=== PATIENT | female | born 2000 | race Caucasian/White ===

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

== ENCOUNTER → 2018-01-07 | Outpatient (CLI) | payer BC | END | disposition home or self-care (01) | LOC: C.LAB1850 10:43 | PROVIDERS: ATTEND Obstetrics & Gynecology | DX: Z34.03 Encounter for supervision of normal first pregnancy, third trimester (principal) ==

== ENCOUNTER 2020-04-27 08:29 | Inpatient (IN) ==
[2020-04-27] MEDS ORDERED: HYDROmorphone INJ 0.5 MG/0.5 ML SYR IV STA ×2 (08:54→09:51)
[2020-04-27] MEDS ORDERED: SODIUM CHLORIDE 0.9% 1000ML 1,000 ML IV ONE (08:54)
[2020-04-27] MEDS ORDERED: ONDANSETRON INJ 2 MG/ML 2 ML VIAL IV STA ×2 (08:54→11:45)
[2020-04-27 09:07] LABS: Basophils # (auto) 0.01 K/uL (0-0.2); Basophils % (auto) 0.1 %; Eosinophils # (auto) 0.07 K/uL (0-0.5); Eosinophils % (auto) 0.5 %; Hematocrit (blood only) 42.4 % (37-47); Hemoglobin 14.3 g/dL (12.0-16.0); Immature Granulocytes # (auto) 0.02 K/uL (0.00-0.02); Immature Granulocytes % (auto) 0.2 %; Lymphocytes # (auto) 1.32 K/uL (1.2-3.4); Lymphocytes % (auto) 10.1 %; Mean Corpuscular Hgb Conc 33.7 g/dL (32-36); Mean Corpuscular Volume 88.9 fL (80-100); Mean Platelet Volume 9.3 fL (7.4-10.4); Monocytes # (auto) 0.76 K/uL (0.11-0.59); Monocytes % (auto) 5.8 %; Neutrophils # (auto) 10.94 K/uL (1.4-6.5); Neutrophils % (auto) 83.3 %; Platelet Count 291 K/uL (130-400); RDW Coefficient of Variation 12.8 % (11.5-14.5); RDW Standard Deviation 41.1 fL (36.4-46.3); Red Blood Count 4.77 M/uL (4.2-5.4); White Blood Count 13.12 K/uL (4.8-10.8)
[2020-04-27 09:15] LABS: Albumin Level 3.9 gm/dl (3.4-5.0); BUN Creatinine Ratio 14.1 (10-20); Calcium 8.9 mg/dl (8.5-10.1); Creatinine Clr Calc Pharmacy 169.2 ml/min; Est GFR (African American) 143.5; Est GFR (Non-African American) 123.9
[2020-04-27 09:18] LABS: Bilirubin,Total 0.7 mg/dl (0.2-1); Total Protein 7.9 gm/dl (6.4-8.2)
[2020-04-27] MEDS ORDERED: PROMETHAZINE 25 MG/51 ML BAG IV STA (09:51)
--- NOTE | 2020-04-27 09:51 | Emergency Department Note ---
History of Present Illness General Chief complaint: Abdominal Pain Stated complaint: RT SIDED ABD PAIN INTO SHOULDERS Time Seen by Provider: 04/27/20 08:44 History of Present Illness Maximum Pain Intensity: 7 19-year-old female who presents to the emergency department with complaint of ri ght upper quadrant pain radiating into her right shoulder. The patient reports nausea without vomiting. The patient is currently scheduled for gallbladder removal 2 days from now with Dr. Ackerman. She did not have any pain or nausea medications at home. She denies any fever or chills, chest pain, shortness of breath or left-sided abdominal pain, and currently rates her discomfort a 7 out of 10. Home Medications Home Medications Medication Instructions Recorded Confirmed Type levonorgestrel 20 mcg/24 hours (5 1 device IU UD 08/12/19 04/27/20 History yrs) 52 mg intrauterine device clindamycin phosphate 1 % lotion 1 appln TOP DAILY #60 ml 02/02/20 04/27/20 Rx spironolactone 100 mg tablet 100 mg PO DAILY #30 tab 04/06/20 04/27/20 Rx escitalopram oxalate [Lexapro] 10 mg PO HS 04/27/20 04/27/20 History tretinoin 1 applic TOP HS 04/27/20 04/27/20 History Allergies Allergy/AdvReac Type Severity Reaction Status Date / Time acetaminophen Allergy Unknown THROAT Verified 04/27/20 09:54 CLOSES Past Med/Surg History Medical History Acne vulgaris KENNETH (generalized anxiety disorder) GERD (gastroesophageal reflux disease) Gestational hypertension no problems currently Hx of appendicitis no surgery Hx of colonic polyps IBS (irritable bowel syndrome) Surgical History H/O removal of cyst face History of section History of colonoscopy 08/2019 History of tonsillectomy Family History Aunt Breast cancer Grandfather (Paternal) Colorectal cancer Father Diabetes Hypertension Aunt Breast cancer Other No family history of adverse response to anesthesia Denies family history of Ovarian cancer Prostate cancer Myocardial infarction Social History Smoking Status: Never smoker Second Hand Exposure: No; Hx Alcohol Use: No Hx Substance Use: No Preferred Language: Slovenian Communication Ability: Effective Back Digger Operator Required: No Beliefs That Will Affect Care: None marital status: Single Current Living Situation: Parent current occupational status: employed current occupation: [employer] Other Information That Helps Us Care for You: No Feels Safe at Home: No Is there a partner from a previous relationship who is making you feel unsafe now?: No Any Concerns about Your Family Situation: No Would You Like to Speak to Someone About Your Situation: No Safety Concerns: Feels Safe At This Time Dental Care, Regularly: Yes Physical Activity Frequency: Daily Seatbelt Use: always Sunscreen Use: No Review of Systems 10 system review was performed and was negative except for pertinent positives and negatives as indicated in history of present illness Physical Exam Vital Signs Vital Signs - 24 hr 04/27/20 08:42 04/27/20 09:40 04/27/20 10:54 Temperature 37.1 C Temperature Source Oral Pulse Rate 98 H Pulse Rate [Finger] 77 84 Pulse Rhythm Regular Pulse Strength Normal Respiratory Rate 22 16 16 Respiratory Effort / Characteristics Non-Labored Spontaneous Respiratory Depth Normal Respiratory Pattern Regular Blood Pressure 181/91 H Blood Pressure [Right Arm] 171/84 H 144/70 H Blood Pressure Mean 121 Blood Pressure Mean [Right Arm] 113 94 Blood Pressure Position Sitting Pulse Oximetry 100 95 97 Oxygen Delivery Method Room Air Room Air Room Air Sepsis Recent Fever Within 48 Hours No Sepsis New/Unexplained Change in Mental Status N/A Sepsis Action Taken by Nursing No Action Required 04/27/20 12:05 04/27/20 13:27 Temperature Temperature Source Pulse Rate Pulse Rate [Finger] 95 H 75 Pulse Rhythm Pulse Strength Respiratory Rate 16 16 Respiratory Effort / Characteristics Respiratory Depth Respiratory Pattern Blood Pressure Blood Pressure [Right Arm] 161/95 H 151/81 H Blood Pressure Mean Blood Pressure Mean [Right Arm] 117 104 Blood Pressure Position Pulse Oximetry 93 96 Oxygen Delivery Method Room Air Sepsis Recent Fever Within 48 Hours Sepsis New/Unexplained Change in Mental Status Sepsis Action Taken by Nursing CONSTITUTIONAL: Healthy and well nourished. Patient appears in moderate discomfort from pain and nausea. HEENT: Normocephalic, atraumatic. No scleral icterus. NECK: Full active range of motion without discomfort. LYMPHATICS: No cervical chain adenopathy. RESPIRATORY: Clear to auscultation bilaterally with no wheezing, crackles, rhonchi or stridor. CARDIOVASCULAR: Regular rate and rhythm with no murmurs, rubs or gallops. GASTROINTESTINAL: Bowel sounds present in all quadrants. Patient has right upper quadrant tenderness to palpation. No rigidity, guarding or rebound. Negative CVA tenderness. Negative McBurney's point tenderness and negative Rovsing sign. MUSCULOSKELETAL: Full range of motion of all joints without discomfort. INTEGUMENTARY: No rash or other significant dermatologic conditions noted. HEMATOLOGIC: No ecchymosis or petechiae. PSYCHIATRIC: Positive affect. NEUROLOGIC: No focal neurologic deficits noted. Course Course Patient history and physical exam were performed. Nurse's notes were reviewed. Vital signs were reviewed, showing an elevated blood pressure of 181/91. The patient appears in moderate discomfort from pain and nausea. I also reviewed electronic medical records, showing that the patient had an ultrasound performed on 04/09/2020 showing a possible gallbladder cyst versus sludge. A HIDA scan was also performed on 04/19/2020, showing an ejection fraction of 49%. The patient reports that she is scheduled for elective cholecystectomy in 2 days, but is unable to tolerate the pain and nausea, and presents to the emergency department for further treatment. IV access was established, and labs were drawn. The patient was hydrated with a liter of normal saline, and administered IV Dilaudid and Zofran. Review of labs shows a mildly elevated white count, otherwise electrolytes, LFTs, alkaline eva sphatase and bilirubin are normal. Prior to ultrasound, the patient was having persistent pain and vomiting. She was administered an additional dose of IV Dilaudid, along with IV Phenergan. The patient still had persistent nausea and vomiting. She was able to tolerate gallbladder ultrasound which did not show any evidence for cholecystitis. The patient was administered an additional dose of IV morphine and Zofran. The case was then discussed with Dr. Mcbride, ED attending physician, as well as the [facility], who came to evaluate the patient. They agreed to admit the patient in anticipation of consulting gastroenterology, and ultimately performing a cholecystectomy. Please see their dictation for further treatment and final disposition. Administered Medications Sodium Chloride (Nss 1000ml) 1,000 mls @ 125 mls/hr IV .Q8H MARIO Stop: 05/27/20 14:13 Last Admin: 04/27/20 14:38 Dose: 125 mls/hr Documented by: [id number] Morphine Sulfate (Morphine Sulfate) 2 mg IV Q3H PRN PRN Reason: MODERATE Pain (Scale 4,5,6) Stop: 05/11/20 14:13 Last Admin: 04/27/20 15:55 Dose: 2 mg Documented by: [id number] Ondansetron HCl (Zofran) 4 mg IV Q4H PRN PRN Reason: Nausea And Vomiting Stop: 05/27/20 14:13 Last Admin: 04/27/20 15:55 Dose: 4 mg Documented by: [id number] Discontinued Medications Hydromorphone HCl (Dilaudid) 0.5 mg IV NOW STA Stop: 04/27/20 08:55 Last Admin: 04/27/20 09:09 Dose: 0.5 mg Documented by: [id number] Hydromorphone HCl (Dilaudid) 0.5 mg IV NOW STA Stop: 04/27/20 09:52 Last Admin: 04/27/20 09:56 Dose: 0.5 mg Documented by: [id number] Sodium Chloride (Nss 1000ml) 1,000 mls @ 999 mls/hr IV .Q1H1M ONE Stop: 04/27/20 09:54 Last Infusion: 04/27/20 10:12 Dose: 0 mls/hr Documented by: [id number] Admin: 04/27/20 09:10 Dose: 999 mls/hr Documented by: [id number] Promethazine HCl (Phenergan) 25 mg in 51 mls @ 204 mls/hr IV NOW STA Stop: 04/27/20 10:05 Last Infusion: 04/27/20 10:13 Dose: 0 mls/hr Documented by: [id number] Admin: 04/27/20 09:56 Dose: 204 mls/hr Documented by: [id number] Piperacillin Sod/Tazobactam (Sod 4.5 gm/ Dextrose) 120 mls @ 200 mls/hr IV NOW ONE; Protocol Stop: 04/27/20 15:20 Last Admin: 04/27/20 15:55 Dose: 200 mls/hr Documented by: [id number] Morphine Sulfate (Morphine Sulfate) 4 mg IV NOW STA Stop: 04/27/20 11:46 Last Admin: 04/27/20 12:02 Dose: 4 mg Documented by: [id number] Morphine Sulfate (Morphine Sulfate) Confirm Administered Dose 2 mg .ROUTE .STK- MED ONE Stop: 04/27/20 13:31 Last Admin: 04/27/20 13:32 Dose: 2 mg Documented by: [id number] Ondansetron HCl (Zofran) 4 mg IV NOW STA Stop: 04/27/20 08:55 Last Admin: 04/27/20 09:09 Dose: 4 mg Documented by: [id number] Ondansetron HCl (Zofran) 4 mg IV NOW STA Stop: 04/27/20 11:46 Last Admin: 04/27/20 12:02 Dose: 4 mg Documented by: [id number] Medical Decision Making Medical Records Attestation: I reviewed the patient's medical records. Home Medications Current Medication List: was personally reviewed by me Laboratory Data Attestation: I reviewed the patient's lab results. Result diagrams: 04/27/20 08:45 04/27/20 08:45 Lab Results 04/27/20 04/27/20 04/27/20 Range/Units 08:45 08:45 08:45 WBC 13.12 H (4.8-10.8) K/uL RBC 4.77 (4.2-5.4) M/uL Hgb 14.3 (12.0-16.0) g/dL Hct 42.4 (37-47) % MCV 88.9 (80-100) fL MCH 30.0 (25-34) pg MCHC 33.7 (32-36) g/dL RDW Std Deviation 41.1 (36.4-46.3) fL RDW Coeff of Nuris 12.8 (11.5-14.5) % Plt Count 291 (130-400) K/uL MPV 9.3 (7.4-10.4) fL Immature Gran % (Auto) 0.2 % Neut % (Auto) 83.3 % Lymph % (Auto) 10.1 % [place] % (Auto) 5.8 % Eos % (Auto) 0.5 % Baso % (Auto) 0.1 % Neut # (Auto) 10.94 H (1.4-6.5) K/uL Lymph # (Auto) 1.32 (1.2-3.4) K/uL [place] # (Auto) 0.76 H (0.11-0.59) K/uL Eos # (Auto) 0.07 (0-0.5) K/uL Baso # (Auto) 0.01 (0-0.2) K/uL Immature Gran # (Auto) 0.02 (0.00-0.02) K/uL Sodium 138 (136-145) mmol/L Potassium 4.0 (3.5-5.1) mmol/L Chloride 109 H (98-107) mmol/L Carbon Dioxide 22 (21-32) mmol/L Anion Gap 8.0 (3-11) BUN 10 (7-18) mg/dl Creatinine 0.70 (0.6-1.2) mg/dl Est Cr Clr Drug Dosing 169.2 ml/min Est GFR ( Amer) 143.5 Est GFR (Non-Af Amer) 123.9 BUN/Creatinine Ratio 14.1 (10-20) Glucose 95 (70-99) mg/dl Calcium 8.9 (8.5-10.1) mg/dl Total Bilirubin 0.7 (0.2-1) mg/dl AST 19 (15-37) U/L ALT 32 (12-78) U/L Alkaline Phosphatase 90 (45-117) U/L Total Protein 7.9 (6.4-8.2) gm/dl Albumin 3.9 (3.4-5.0) gm/dl Globulin 4.0 (2.5-4.0) gm/dl Albumin/Globulin Ratio 1.0 (0.9-2) Lipase 95 (73-393) U/L HCG, Qual Negative (Negative) Imaging Data Attestation: I personally reviewed and interpreted this imaging study as enriqueta armstrong: My Impression: Gallbladder ultrasound does not show any evidence for cholecystitis. A gallbladder polyp is noted. No common bile duct dilatation appreciated. Radiologist report was also reviewed. Radiologist's Impression: US gallbladder CLINICAL HISTORY: Biliary colic. COMPARISON STUDY: CT of the abdomen and pelvis September 24, 2013. Right upper quadrant ultrasound April 09, 2020. FINDINGS: Hepatic echogenicity is increased. Exam is mildly compromised by suboptimal penetration but no hepatic lesions are identified. A suspected 4 mm gallbladder polyp is again noted. There is no gallbladder wall thickening. There is no pericholecystic fluid. No biliary ductal dilatation present. The common bile duct measures 5 mm in caliber. The pancreatic body is normal. Head and tail are partially obscured. IMPRESSION: 1. Suspected 4 mm gallbladder polyp. 2. No gallstones. No gallbladder wall thickening. 3. Fatty liver. Prescription Drug Monitoring [place] Drug Monitoring Program reviewed and no issues identified Blood Pressure Blood Pressure Findings: Elevated blood pressure Blood Pressure Disposition: elevated BP felt to be situational MDM Narrative Patient presents the emergency department with complaint of right upper quadrant abdominal pain, nausea and vomiting. The patient had poor pain and nausea control while in the emergency department. Her ultrasound does not show evidence for acute cholecystitis, and lab work is otherwise unremarkable except for a mild leukocytosis. The patient has been evaluated by general surgery Laboratory studies are not suggestive of pancreatitis or hepatitis. The patient was unable to provide a urine sample to rule out or UTI. Serum , however, was negative. Impression & Plan Biliary colic, Right upper quadrant abdominal pain Discharge Plan Visit Data *Final* Discharge Date/Time: 04/27/20 13:41 Chief Complaint: Abdominal Pain Stated Complaint: RT SIDED ABD PAIN INTO SHOULDERS ED Provider: Ofelia Mcbride ED Midlevel Provider: Spencer Whitfield Discharge Problem: Biliary colic, Right upper quadrant abdominal pain Patient Disposition: Admitted As Inpatient Discharge Instructions Interventions: ED Discharge Assessment Last Done: 04/27/20 13:41
--- NOTE | 2020-04-27 10:52 | Ultrasound Report ---
US gallbladder CLINICAL HISTORY: Biliary colic. COMPARISON STUDY: CT of the abdomen and pelvis September 24, 2013. Right upper quadrant ultrasound Ju 2019. FINDINGS: Hepatic echogenicity is increased. Exam is mildly compromised by suboptimal penetration but no hepatic lesions are identified. A suspected 4 mm gallbladder polyp is again noted. There is no ga llbladder wall thickening. There is no pericholecystic fluid. No biliary ductal dilatation present. T he common bile duct measures 5 mm in caliber. The pancreatic body is normal. Head and tail are partia lly obscured. IMPRESSION: 1. Suspected 4 mm gallbladder polyp. 2. No gallstones. No gallbladder wall thickening. 3. Fatty liver. ACT 112: Negative or not required by law. Electronically signed by: Manan Ray M.D. 04/27/2020 10:51 AM
[2020-04-27] MEDS ORDERED: MoRPHine SULFATE 4 MG/ML 1 ML CARP\\VIAL IV STA (11:45)
[2020-04-27 12:21] LABS: Pregnancy Test, Serum Negative (Negative)
--- NOTE | 2020-04-27 12:25 | History & Physical Report ---
Date of Service April 27, 2020 Assessment & Plan (1) RUQ abdominal pain: This is a 19y F with a PMH of anxiety who presents to the [facility] ED on 04/27/20 with complaints of abdominal pain associated with nausea/vomiting. Of significance patient was previously schedule for a lap. crystal this upcoming with Dr. Ackerman. Workup today revealed a WBC of 13, normal LFTs, and a RUQ US showing no stones or gallbladder wall thickening with a suspected 4mm gb polyp. Prior HIDA revealed an EF of 49% and no e/o acute cholecystitis, however apparently mimicked her symptoms. At this time we will admit patient for supportive management, will start IV abx in the setting of elevated WBC, IVF for rehydration, and medications for pain & nausea control. We will consult GI to see if they have any other ideas for workup/evaluation of etiology of patient's symptoms, with possible consideration of EGD prior to lap cholecystectomy. We will keep her NPO at midnight in the meantime and tentatively add her on for laparoscopic cholecystectomy tomorrow in the OR. Patient discussed with Dr. Villagran. History of Present Illness Primary Care Provider: Joana Avendano MD This is a 19y F with a PMH of anxiety who presents to the [facility] ED on 04/27/20 with complaints of abdominal pain associated with nausea/vomiting. Of significance the patient had been previously evaluated in our outpatient clinic for consideration of a lap. cholecystectomy as a referral by GI due to similar symptoms occurring over the past year. Her prior workup included a HIDA scan showing an EF of 49% and RUQ US showing no stones or GB wall thickening, along with a 4mm polyp vs sludge. She was evaluated and was scheduled for the OR for a lap crystal this upcoming with Dr. Ackerman, with the knowledge that even though her symptoms appear to be related to the gallbladder, that surgery may not alleviate her symptoms. Patient aware and wished to proceed with planning for surgery. Patient now presents to the ED today with N/V, abdominal pain she states started to worsen yesterday evening around 11:30pm. She vomited at least 6-7 times last night which has continued through today in the ED. Her abdominal pain is located mostly in the RUQ, rates it a 9/10, & says it radiates between her shoulder blades. Patient states that these symptoms occur almost every time she eats to some extent and that the pain is constant and never truly goes away. In the ED a repeat RUQ US was obtained revealing a suspected 4mm gallbladder polyp without stones or e/o acute cholecystitis. Her WBC is 13 and LFT's are within normal limits. Her last meal was yesterday around lunch time which consisted of a hoagie. Patient endorses + diarrhea and the shakes. She denies fevers/chills, chest pain or shortness of breath. Past surgical history includes a . She also had a colonoscopy by GI last August she says revealed polyps. Surgery was consulted for further evaluation. Allergies Allergy/AdvReac Type Severity Reaction Status Date / Time acetaminophen Allergy Unknown THROAT Verified 04/27/20 09:54 CLOSES Home Medications Home Medications Medication Instructions Recorded Confirmed Type levonorgestrel 20 mcg/24 hours (5 1 device IU UD 08/12/19 04/27/20 History yrs) 52 mg intrauterine device clindamycin phosphate 1 % lotion 1 appln TOP DAILY #60 ml 02/02/20 04/27/20 Rx spironolactone 100 mg tablet 100 mg PO DAILY #30 tab 04/06/20 04/27/20 Rx escitalopram oxalate [Lexapro] 10 mg PO HS 04/27/20 04/27/20 History tretinoin 1 applic TOP HS 04/27/20 04/27/20 History Past Med/Surg History Medical History Acne vulgaris KENNETH (generalized anxiety disorder) GERD (gastroesophageal reflux disease) Gestational hypertension no problems currently Hx of appendicitis no surgery Hx of colonic polyps IBS (irritable bowel syndrome) Surgical History H/O removal of cyst face History of section History of colonoscopy 08/2019 History of tonsillectomy Family History Aunt Breast cancer Grandfather (Paternal) Colorectal cancer Father Diabetes Hypertension Aunt Breast cancer Other No family history of adverse response to anesthesia Denies family history of Ovarian cancer Prostate cancer Myocardial infarction Social History (Reviewed 04/27/20 @ 12:15 by KAMILA Irene Smoking Status: Never smoker Second Hand Exposure: No; Hx Alcohol Use: No Hx Substance Use: No Preferred Language: Cameroonian Communication Ability: Effective Solar Sales Required: No Beliefs That Will Affect Care: None marital status: Single Current Living Situation: Family and Significant Other current occupational status: employed current occupation: [employer] Feels Safe at Home: Yes Dental Care, Regularly: Yes Physical Activity Frequency: Daily Seatbelt Use: always Sunscreen Use: No Review of Systems Constitutional: no fever and no chills says she feels the "shakes" from not eating Respiratory: no dyspnea Cardiovascular: no chest pain Gastrointestinal: + abdominal pain (RUQ), + bloating, + nausea, + vomiting and + diarrhea/loose stools Physical Exam Physical Exam: awake/alert Constitutional: well developed, well nourished and + ill appearing Gastrointestinal (Abdomen): Percussion/Palpation: + abdomen tender (ttp in RUQ) and abdomen soft Results & Data Results & Data ([facility]) Vital Signs (Past 12 Hours) Vital Signs Temp Pulse Pulse Resp BP BP Pulse Ox 04/27/20 12:05 95 H 16 161/95 H 93 04/27/20 10:54 84 16 144/70 H 97 04/27/20 09:40 77 16 171/84 H 95 04/27/20 08:42 37.1 C 98 H 22 181/91 H 100 US gallbladder CLINICAL HISTORY: Biliary colic. COMPARISON STUDY: CT of the abdomen and pelvis September 24, 2013. Right upper quadrant ultrasound April 09, 2020. FINDINGS: Hepatic echogenicity is increased. Exam is mildly compromised by suboptimal penetration but no hepatic lesions are identified. A suspected 4 mm gallbladder polyp is again noted. There is no gallbladder wall thickening. There is no pericholecystic fluid. No biliary ductal dilatation present. The common bile duct measures 5 mm in caliber. The pancreatic body is normal. Head and tail are partially obscured. IMPRESSION: 1. Suspected 4 mm gallbladder polyp. 2. No gallstones. No gallbladder wall thickening. 3. Fatty liver. ACT 112: Negative or not required by law. Electronically signed by: Manan Ray M.D. 04/27/2020 10:51 AM NUCLEAR MEDICINE HEPATOBILIARY SCAN WITH EJECTION FRACTION HISTORY: R93.5 Abnormal findings on diagnostic imaging of other ab... COMPARISON: Abdominal ultrasound 04/09/2020. TECHNIQUE: Immediately following the intravenous administration of 5.4 mCi Tc- 99m Choletec, dynamic anterior abdominal imaging pre/post 2.3 mcg of Kinevac was performed. FINDINGS: Uniform hepatic tracer accumulation is shown. Prompt intrahepatic biliary excretion is seen. The gallbladder, common bile duct, and small bowel are all visualized by 30 minutes. This appearance represents the normal sequence of biliary excretion. The gall bladder ejection fraction following administration of Kinevac was 49% (normal >35%). IMPRESSION: 1. No evidence for cystic duct obstruction. 2. Gallbladder ejection fraction calculated to be 49 %. ACT 112: Negative or not required by law. Electronically signed by: Brandt Morales M.D. 04/19/2020 10:08 AM US abdomen limited HISTORY: 19 years-old Female AB PAIN acute right upper quadrant abdominal pain COMPARISON: CT abdomen and pelvis 09/24/2013 TECHNIQUE: Multiple real-time sonographic images of the abdominal right upper quadrant were obtained assessing grayscale appearance and color flow FINDINGS: The imaged pancreas is unremarkable. There is mildly increased echogenicity of the liver with poor through transmission. No focal hepatic mass lesion identified. The gallbladder is demonstrates no shadowing cholelithiasis, wall thickening or pericholecystic fluid. There is a 4 mm nonshadowing echogenic focus along the dependent mid gallbladder lumen. Trace layering gallbladder sludge. Common bile duct is normal, 4 mm. The imaged right kidney is unremarkable without hydronephrosis. IMPRESSION: 1. No cholelithiasis or sonographic evidence of acute cholecystitis. 2. 4 mm gallbladder polyp versus tumefactive sludge. 3. Hepatic steatosis. ACT 112: Negative or not required by law Supervising Physician Co-Signing Physician Notes Very atypical presentation of gallbladder disease 2 years ago after her child was delivered she has had diarrhea and actually had a colonoscopy in the recent past which was normal 7 months ago she started with intermittent bouts of nausea with early satiety and reflux symptoms was started on an H2 chicho was followed by GI no EGD was performed but was entertained ultrasound of the gallbladder showed a appears to be a 4 mm polyp most likely cholesterol in nature with no wall thickening by ultrasound that was repeated in the past and today and normal hepatobiliary scan The patient is resting comfortably now she has had a significant amount of analgesics prior to my visit with her she says she had a small emesis in the bathroom and it was clear in nature As stated she is resting comfortably the abdomen is completely benign no right upper quadrant guarding or tenderness she states she has pain in right upper quadrant and goes towards the midline and upper chest Long discussion with the patient pretty much outlining the same thing as Dr. Ackerman at stated to her office visit we will proceed with laparoscopic cholecystectomy cholangiogram but not 100% sure that this will alleviate her symptoms Risk and complication of gallbladder surgery was complained to her and we will proceed accordingly She understands that if the symptoms persist then she will need further evaluation by GI PG Care Time/CCT Total # of Minutes Spent Total Time Spent with Patient: Total time spent is greater than 50% in coordination of care (as documented) at patient's floor/unit and/or counseling patient: Coding Level of Care Code 28149 Initial Inpt Care Lvl 3 Diagnoses RUQ abdominal pain R10.11
[2020-04-27] MEDS ORDERED: MoRPHine SULFATE 2 MG/ML CARP ONE (13:30)
[2020-04-27] MEDS ORDERED: ONDANSETRON INJ 2 MG/ML 2 ML VIAL IV PRN (14:14)
[2020-04-27] MEDS ORDERED: PIPERACILL/TAZOBAC CONSULT ACTIVE PRN (14:14)
[2020-04-27] MEDS ORDERED: MoRPHine SULFATE 10 MG/ML CARP/VIAL IV PRN (14:14)
[2020-04-27] MEDS ORDERED: PIPERACILLIN/TAZOBACTAM 3.375 GM in DEXTROSE 5% 100 ML IV SCH (14:14)
[2020-04-27] MEDS ORDERED: PROMETHAZINE HCL 12.5 MG in SODIUM CHLORIDE 0.9% 50 ML IV PRN (14:14)
[2020-04-27] MEDS: SODIUM CHLORIDE 0.9% 1000ML 1,000 ML IV SCH ×2 (14:38→22:38)
[2020-04-27] MEDS ORDERED: PIPERACILLIN/TAZOBACTAM 4.5 GM in DEXTROSE 5% 100 ML IV ONE (14:45)
[2020-04-27] MEDS: MoRPHine SULFATE 4 MG/ML 1 ML CARP\\VIAL IV PRN ×2 (15:55→23:35)
--- NOTE | 2020-04-27 17:36 | Anesthesiology Consultation ---
Date of Service April 27, 2020 Assessment & Plan (1) Encounter for pre-operative examination: Chart Review Chart Review: Acceptable Risk for Surgery and Patient NOT seen in Pre Admission Testing Consults Requested none Additional Notes HCG done on the was negative, COVID testing from 04/26 is still pending History Surgery Operation Date: 04/28/20 10:10 Proposed Procedures p Laparoscopic Cholecystectomy with Cholangiogram - Isak Villagran MD Height/Weight Height: 5 ft 9 in Weight: 111 kg Allergies Allergy/AdvReac Type Severity Reaction Status Date / Time acetaminophen Allergy Unknown THROAT Verified 04/27/20 09:54 CLOSES Medications Home Medications Medication Instructions Recorded Confirmed Last Taken levonorgestrel 20 mcg/24 hours (5 1 device IU UD 08/12/19 04/27/20 04/27/20 yrs) 52 mg intrauterine device clindamycin phosphate 1 % lotion 1 appln TOP DAILY #60 ml 02/02/20 04/27/20 04/26/20 spironolactone 100 mg tablet 100 mg PO DAILY #30 tab 04/06/20 04/27/20 Unknown escitalopram oxalate [Lexapro] 10 mg PO HS 04/27/20 04/27/20 04/26/20 tretinoin 1 applic TOP HS 04/27/20 04/27/20 04/25/20 Active Medications Generic Name Dose Route Start Last Admin Trade Name Freq PRN Reason Stop Dose Admin Sodium Chloride 1,000 mls @ 125 mls/hr 04/27/20 14:14 04/27/20 14:38 Nss 1000ml IV 05/27/20 14:13 125 mls/hr .Q8H MARIO Administration Morphine Sulfate 2 mg 04/27/20 14:14 04/27/20 15:55 Morphine Sulfate IV 05/11/20 14:13 2 mg Q3H PRN Administration MODERATE Pain (Scale 4,5,6) Ondansetron HCl 4 mg 04/27/20 14:14 04/27/20 15:55 Zofran IV 05/27/20 14:13 4 mg Q4H PRN Administration Nausea And Vomiting NPO Date Last Intake of Solids: 04/26/20 Time Last Intake of Solids: 12:00 Past Medical History Medical History Acne vulgaris KENNETH (generalized anxiety disorder) GERD (gastroesophageal reflux disease) Gestational hypertension no problems currently Hx of appendicitis no surgery Hx of colonic polyps IBS (irritable bowel syndrome) Past Family History Family History Aunt Breast cancer Grandfather (Paternal) Colorectal cancer Father Diabetes Hypertension Aunt Breast cancer Other No family history of adverse response to anesthesia Denies family history of Ovarian cancer Prostate cancer Myocardial infarction Past Surgical History Surgical History H/O removal of cyst face History of section History of colonoscopy 08/2019 History of tonsillectomy Social History Smoking Status: Never smoker Hx Alcohol Use: No Hx Substance Use: No substance use type: does not use Physical Exam Vital Signs Last Vital Signs Temp 37.3 C 04/27/20 15:20 Pulse 76 04/27/20 15:20 Resp 17 04/27/20 15:20 BP 130/77 04/27/20 15:20 Pulse Ox 96 04/27/20 15:20 Testing Laboratory Results 04/27/20 08:45 04/27/20 08:45
[2020-04-27 19:54] LABS: Appearance Urine Cloudy (Clear); Bacteria Urine Automated Negative (Negative); Bilirubin Urine Negative (Negative); Blood Urine Negative (Negative); Color Urine Yellow; Epithelial Cell Urine Auto >30 /lpf (0-5); Glucose Urine UA Negative (Negative); Ketones Urine Negative (Negative); Leukocyte Esterase Urine Trace (Negative); Nitrite Urine Negative (Negative); Protein Urine Negative (Negative); RBC Urine Automated 0-4 /hpf (0-4); Specific Gravity Urine 1.028 (1.000-1.030); Urobilinogen Urine Negative (Negative)
[2020-04-27] MEDS: PIPERACILLIN/TAZOBACTAM 4.5 GM in DEXTROSE 5% 100 ML IV SCH (20:40)
[2020-04-27] MEDS: ESCITALOPRAM OXALATE 10 MG TAB PO SCH (20:40)
[2020-04-28] MEDS: SODIUM CHLORIDE 0.9% 1000ML 1,000 ML IV SCH ×2 (01:39→08:52)
[2020-04-28] MEDS: PIPERACILLIN/TAZOBACTAM 4.5 GM in DEXTROSE 5% 100 ML IV SCH (03:36)
[2020-04-28] MEDS: MoRPHine SULFATE 4 MG/ML 1 ML CARP\\VIAL IV PRN ×2 (05:52→20:47)
[2020-04-28 06:07] LABS: Basophils # (auto) 0.01 K/uL (0-0.2); Basophils % (auto) 0.1 %; Eosinophils # (auto) 0.04 K/uL (0-0.5); Eosinophils % (auto) 0.5 %; Hematocrit (blood only) 37.2 % (37-47); Hemoglobin 12.4 g/dL (12.0-16.0); Immature Granulocytes # (auto) 0.01 K/uL (0.00-0.02); Immature Granulocytes % (auto) 0.1 %; Lymphocytes % (auto) 30.1 %; Mean Corpuscular Hgb Conc 33.3 g/dL (32-36); Mean Corpuscular Volume 89.9 fL (80-100); Mean Platelet Volume 9.3 fL (7.4-10.4); Monocytes # (auto) 0.88 K/uL (0.11-0.59); Monocytes % (auto) 11.5 %; Neutrophils # (auto) 4.41 K/uL (1.4-6.5); Neutrophils % (auto) 57.7 %; Platelet Count 240 K/uL (130-400); RDW Coefficient of Variation 13.1 % (11.5-14.5); RDW Standard Deviation 42.8 fL (36.4-46.3); Red Blood Count 4.14 M/uL (4.2-5.4); White Blood Count 7.65 K/uL (4.8-10.8)
[2020-04-28 06:34] LABS: BUN Creatinine Ratio 15.1 (10-20); Bilirubin Direct 0.2 mg/dl (0-0.2); Calcium 7.8 mg/dl (8.5-10.1); Creatinine Clr Calc Pharmacy 179.1 ml/min; Est GFR (African American) 146.4; Est GFR (Non-African American) 126.3; Potassium 3.5 mmol/L (3.5-5.1)
[2020-04-28 06:46] LABS: Bilirubin,Total 0.7 mg/dl (0.2-1); Total Protein 6.5 gm/dl (6.4-8.2)
--- NOTE | 2020-04-28 10:00 | Gastrointestinal Consultation ---
Date of Consultation April 28, 2020 Assessment & Plan (1) Right upper quadrant abdominal pain: Patient is a 19 yo female with colicky RUQ pain. -Patient is tentatively scheduled for a lap sydnee on 04/28/20 (was previously on outpatient schedule with Dr. Ackerman on 04/29/20) -Would recommend Pantoprazole 40 mg BID and outpatient EGD to exclude other pathology, though seems less likely to be something such as an ulcer as patient has been taking Pantoprazole consistently as an outpatient. Thank you for allowing us to participate in the care of this patient. If you should have any further questions or concerns, do not hesitate to contact us at extension [phone] or [phone]. Supervising Physician Co-Signing Physician Notes Agree with Nupur Ovalle, PAC Just returned from [facility] Sydnee States she is not feeling well at present Abd: Soft, tender, ND Continue supportive care Will follow along and make further recommendations as needed History of Present Illness Reason for Consultation: RUQ pain Attending Physician: Isak Villagran MD History of Present Illness Patient is a 19 yo female with a 6 month history of intermittent colicky RUQ abdominal pain. She has been following with Dr. Tate for this issue as an outpatient. She had a colonoscopy in August 2019 that did not indicate any explanation for her symptoms. She had tried fiber, antispasmodics, FODMAP diet, and most recently was on Viberzi for her diarrhea. She has been noting a worsening of the episodes of RUQ pain. She reports that over the past week she has experienced severe RUQ pain with radiation between her shoulder blades along with emesis of green bilious fluid. She does have a high fat diet. She has been on Pantoprazole as an outpatient and is not experiencing any alarming symptoms of melena/hematemesis at present. She denies heartburn or reflux. She denies significant NSAID use. She had an outpatient abdominal US that indicated sludge and possible polyp. A HIDA indicated an EF of 49%, though the scan did trigger her symptoms. She was seen by Dr. Ackerman of general surgery and was scheduled for an outpatient lap sydnee on 04/29. Unfortunately, her symptoms worsened prior to this date and she presented to the ED for pain control. An US indicated a polyp, but no visualization of the sludge that was noted 2 weeks ago. Her LFTs are unremarkable at present. She denies new symptoms. No further nausea/vomiting today, but RUQ pain is persisting. Allergies Allergy/AdvReac Type Severity Reaction Status Date / Time acetaminophen Allergy Unknown THROAT Verified 04/27/20 09:54 CLOSES Home Medications Home Medications Medication Instructions Recorded Confirmed Type levonorgestrel 20 mcg/24 hours (5 1 device IU UD 08/12/19 04/27/20 History yrs) 52 mg intrauterine device clindamycin phosphate 1 % lotion 1 appln TOP DAILY #60 ml 02/02/20 04/27/20 Rx spironolactone 100 mg tablet 100 mg PO DAILY #30 tab 04/06/20 04/27/20 Rx escitalopram oxalate [Lexapro] 10 mg PO HS 04/27/20 04/27/20 History tretinoin 1 applic TOP HS 04/27/20 04/27/20 History Patient History Medical History Acne vulgaris KENNETH (generalized anxiety disorder) GERD (gastroesophageal reflux disease) Gestational hypertension no problems currently Hx of appendicitis no surgery Hx of colonic polyps IBS (irritable bowel syndrome) Surgical History H/O removal of cyst face History of section History of colonoscopy 08/2019 History of tonsillectomy Family History Aunt Breast cancer Grandfather (Paternal) Colorectal cancer Father Diabetes Hypertension Aunt Breast cancer Other No family history of adverse response to anesthesia Denies family history of Ovarian cancer Prostate cancer Myocardial infarction Social History Smoking Status: Never smoker Second Hand Exposure: No; Do You Dip or Chew Tobacco: No; Tobacco Cessation Education Requested by Patient: No Hx Alcohol Use: No Hx Substance Use: No Preferred Language: Irish Communication Ability: Effective Sample Processor Required: No Beliefs That Will Affect Care: None marital status: Single Current Living Situation: Parent current occupational status: employed current occupation: [employer] Other Information That Helps Us Care for You: No Feels Safe at Home: No Is there a partner from a previous relationship who is making you feel unsafe now?: No Any Concerns about Your Family Situation: No Would You Like to Speak to Someone About Your Situation: No Safety Concerns: Feels Safe At This Time Dental Care, Regularly: Yes Physical Activity Frequency: Daily Seatbelt Use: always Sunscreen Use: No Review of Systems Constitutional: decreased appetite Eyes: no problem reported Respiratory: no cough and no dyspnea Cardiovascular: no chest pain Gastrointestinal: + abdominal pain (RUQ), + nausea and + vomiting; no hematemesis and no melena Musculoskeletal: no problem reported Integumentary: no rash Psychiatric: no problem reported Physical Exam Constitutional: WD/WN, vitals as above Eyes: PERRL, conjunctivae normal, anicteric sclerae Neck: normal visual inspection Respiratory: normal respiratory effort Cardiovascular: Rate/Rhythm: regular rate Extremities: no edema Gastrointestinal (Abdomen): Inspection/Auscultation: abdomen normal to inspection Percussion/Palpation: + abdomen tender Skin: no rashes, warm and dry Psychiatric: A+Ox3, euthymic affect Results & Data ([facility]) Vital Signs (Past 12 Hours) Vital Signs Temp Pulse Resp BP Pulse Ox 04/28/20 07:06 36.8 C 62 19 130/78 95 04/27/20 23:17 37.0 C 66 19 123/61 95 PG Care Time/CCT Total # of Minutes Spent Total Time Spent with Patient: Total time spent is greater than 50% in coordination of care (as documented) at patient's floor/unit and/or counseling patient: Coding Level of Care Code 65153 Inpt Consult Level 4 Diagnoses Right upper quadrant abdominal pain R10.11
[2020-04-28] MEDS ORDERED: DEXAMETHASONE SOD INJ 4 MG/ML VIAL ONE (11:26)
[2020-04-28] MEDS ORDERED: MIDAZOLAM HCL 1 MG/ML 2ML VIAL ONE (11:26)
[2020-04-28] MEDS ORDERED: ROCURONIUM BROMIDE 10 MG/ML 5 ML VIAL IV ONE ×6 (11:26→13:33)
[2020-04-28] MEDS ORDERED: LIDOCAINE HCL 2% 2 ML VIAL/AMP(20MG/ML) INFIL ONE (11:26)
[2020-04-28] MEDS ORDERED: PROPOFOL IV EMULSION 10 MG/ML 20 ML VIAL IV ONE (11:26)
[2020-04-28] MEDS ORDERED: GLYCOPYRROLATE 0.2 MG/ML VIAL ONE (11:26)
[2020-04-28] MEDS ORDERED: fentaNYL citrate 100 MCG/2 ML VIAL ONE (11:26)
[2020-04-28] MEDS ORDERED: ONDANSETRON INJ 2 MG/ML 2 ML VIAL ONE (11:26)
[2020-04-28] MEDS ORDERED: NEOSTIGMINE METHYLSULFATE 5 MG/5 ML SYR ONE (11:26)
[2020-04-28] MEDS ORDERED: ePHEDrine sulfate 50 MG/ML AMP IV PRN (11:42)
[2020-04-28] MEDS ORDERED: ATROPINE SULFATE 0.1 MG/ML 10ML SYR IV PRN (11:42)
[2020-04-28] MEDS ORDERED: HYDROmorphone INJ 2 MG/ML SYR/VIAL IV PRN (11:42)
[2020-04-28] MEDS ORDERED: ONDANSETRON INJ 2 MG/ML 2 ML VIAL IV PRN (11:42)
--- NOTE | 2020-04-28 12:30 | History & Physical Bridge Note ---
Date of Service April 28, 2020 History & Physical Bridge Note I have examined the patient, reviewed the History & Physical and in the interval since the performance of the History & Physical I have noted the following changes of clinical significance: no changes noted No changes since last evening still a bit nauseated abdomen is completely benign will proceed with laparoscopic cholecystectomy cholangiogram possible open all questions were answered Surgical permit was signed and witnessed
[2020-04-28] MEDS ORDERED: LIDOCAINE/EPINEPHRINE 1% 20 ML VIAL ONE (12:42)
[2020-04-28] MEDS ORDERED: OPTIRAY 300 IV PRN (13:34)
--- NOTE | 2020-04-28 14:07 | Post Operative Brief Note ---
PG Immediate Post Op with CF Date of Surgery April 28, 2020 Pre & Post Diagnosis Operation Date: 04/28/20 11:30 Pre-Op Diagnosis: Gallbladder polyp Post-Op Diagnosis: Gallbladder polyp, chronic cholecystitis Operation Date: 04/28/20 16:00 <No data on this case meets the specified criteria> I identified the patient and participated in the time-out.: Yes Procedure Operation Date: 04/28/20 11:30 Actual Procedures p Laparoscopic Cholecystectomy with Cholangiogram - Isak Villagran MD Operation Date: 04/28/20 16:00 <No data on this case meets the specified criteria> Surgeon Isak Villagran MD Grooving Machine Operator Sam BENTON Estimated Blood Loss 5 Findings Consistent with Post-Op Diagnosis Specimens Specimen Description: A: Gallbladder
--- NOTE | 2020-04-28 14:16 | Fluoroscopy Report ---
FL cholangiogram OR HISTORY: Post cholecystectomy. FLUOROSCOPY TIME: 2 seconds. FINDINGS: Fluoroscopy was provided for an intraoperative cholangiogram status post cholecystectomy. C ontrast was injected through the cystic duct remnant. The common bile duct is normal in course and ca liber. There are no filling defects seen within the common bile duct to suggest a retained stone. Co ntrast extends into the small bowel. There is no intrahepatic bile duct dilatation. IMPRESSION: Fluoroscopy provided for an intraoperative cholangiogram status post cholecystectomy. No filling defects within the common bile duct. ACT 112: Negative or not required by law. The above report was generated using voice recognition software. It may contain grammatical, syntax or spelling errors. Electronically signed by: Jonnathan Cotter M.D. 04/28/2020 2:15 PM
--- NOTE | 2020-04-28 14:19 | Operative Report ---
PG Post Operative Report Pre & Post Diagnosis Operation Date: 04/28/20 11:30 Pre-Op Diagnosis: Gallbladder polyp Post-Op Diagnosis: Gallbladder polyp, chronic cholecystitis Operation Date: 04/28/20 16:00 <No data on this case meets the specified criteria> I identified the patient and participated in the time-out.: Yes Procedure Operation Date: 04/28/20 11:30 Actual Procedures p Laparoscopic Cholecystectomy with Cholangiogram - Isak Villagran MD Patient was brought into the operating theater general endotracheal anesthesia the abdomen is prepped byline solution properly draped timeout was had patient was identified small incision was made supraumbilically sufficient to place a 5 mm trocar we try to put a Veress needle into the abdomen that seemed not to be long enough therefore we enlarged the incision and using Willow clamps above the umbilicus and was able to elevate the fascia in the midline and placed a Veress needle without any difficulty CO2 insufflated followed by 5 mm trocar point and entry inspected no injury identified on direct visualization we placed a 5 mm epigastric and 2 5 mm subcostal ports with preemptive local analgesia 0.5% Marcaine lateral right upper quadrant trocar site grasper was placed on gallbladder which appeared grossly normal there were no adhesions of the gallbladder we elevated and dissected out towards the neck of the gallbladder was able to identify the window between the cystic duct artery and the lymph node a GALA 5 mm clip was placed in the cystic duct at its takeoff from the gallbladder small opening cystic duct was made #4 ureteral catheter transversing abdominal wall and Angiocath was positioned single x-ray was taken which showed free flow into duodenum no obstruction cholangiocatheter was removed the cystic duct was doubly clipped and divided the artery exposed we doubly clipped proximally one distally the lymph node actually going on with the specimen that we would remove with the gallbladder we took the gallbladder out using electrocautery leaving as much posterior peritoneum was possible prior to freeing it from the liver bed we checked for hemostasis and appears satisfactory we placed the gallbladder in Endopouch taken out intact through the epigastric port the subhepatic suprahepatic area was then checked from her stays appear satisfactory camera was placed right upper quadrant port to visualize the initial entry into the umbilical area no adhesions were identified on direct visualization all the trochars were taken out with no evidence of any bleeding unless the umbilical trocar wounds were closed with 4-0 Monocryl Steri-Strips applied procedure was tolerated well by the patient estimated blood loss 5 cc addendum I looked in the right lower quadrant prior to closing and visualize the cecum I can see a very small fibrinous appendix recent being the patient has had appendicitis in the past and they treated nonoperatively addendum Sam benton was present throughout the procedure and helped the retraction exposure and camera work At the end the procedure I opened up the gallbladder which is at typical cholesterolosis of the wall the lymph node a Calot which was small probably a 3 to 4 mm had a different color than normal therefore I dissected off the cystic duct area and sent to pathology separately Operation Date: 04/28/20 16:00 <No data on this case meets the specified criteria> Surgeon Isak Villagran MD Contractor Field Hauling Sam BENTON Estimated Blood Loss 5 Findings Consistent with Post-Op Diagnosis Specimens gallbladder and contents lymph node of Calot Description of Procedure merda I attest to the content of the Intraoperative Record and any orders documented therein. Any exceptions are noted below.
[2020-04-28] MEDS: fentaNYL citrate 100 MCG/2 ML VIAL IV PRN ×4 (14:42→15:10)
--- NOTE | 2020-04-28 16:18 | Anesthesiology Progress Note ---
Date of Service April 28, 2020 Anesthesia Post Procedure Vital Signs Vital Signs: Temp Pulse Pulse Resp BP BP Pulse Ox 04/28/20 16:13 36.7 C 57 L 16 135/83 98 04/28/20 15:59 37.0 C 59 L 20 126/82 94 04/28/20 15:40 36.2 C L 72 17 149/80 H 96 04/28/20 15:30 59 L 19 152/74 H 96 04/28/20 15:20 54 L 17 140/74 93 04/28/20 15:10 53 L 21 173/90 H 92 04/28/20 15:00 36.1 C L 56 L 18 164/83 H 96 04/28/20 14:50 49 L 20 158/84 H 98 04/28/20 14:40 54 L 18 168/85 H 100 04/28/20 14:31 36.5 C 67 23 147/73 H 97 04/28/20 11:22 36.9 C 56 L 18 135/75 98 04/28/20 07:06 36.8 C 62 19 130/78 95 04/27/20 23:17 37.0 C 66 19 123/61 95 04/27/20 19:41 122/65 Pain Intensity Abdomen: Pain Intensity: 4 Transfer of Care Handoff Completed per policy Notes Mental Status: alert / awake / arousable and participated in evaluation Patient Amnestic to Procedure: Yes Nausea / Vomiting: adequately controlled Pain: adequately controlled Airway Patency, RR, SpO2: stable & adequate BP & HR: stable & adequate Hydration State: stable & adequate Anesthetic Complications: no major complications apparent and Pt Satisfied with anesthetic care
[2020-04-28] MEDS ORDERED: OXYCODONE HCL IR 5 MG TAB (IMMEDIATE RELEASE) PO PRN (16:36)
[2020-04-28] MEDS ORDERED: LORazepam 1 MG/2 ML VIAL IV PRN (16:59)
[2020-04-28] MEDS: OXYCODONE HCL IR 5 MG TAB (IMMEDIATE RELEASE) PO PRN (17:57)
[2020-04-28] MEDS: LACTATED RINGER'S 1,000 ML IV SCH (17:58)
[2020-04-28] MEDS: PANTOprazole 40 MG TAB PO SCH (20:09)
[2020-04-28] MEDS: ESCITALOPRAM OXALATE 10 MG TAB PO SCH (20:09)
[2020-04-29] MEDS: LACTATED RINGER'S 1,000 ML IV SCH (04:24)
[2020-04-29 05:49] LABS: Eosinophils # (auto) 0.01 K/uL (0-0.5); Eosinophils % (auto) 0.1 %; Hematocrit (blood only) 37.1 % (37-47); Hemoglobin 12.2 g/dL (12.0-16.0); Immature Granulocytes # (auto) 0.02 K/uL (0.00-0.02); Immature Granulocytes % (auto) 0.2 %; Lymphocytes # (auto) 2.23 K/uL (1.2-3.4); Lymphocytes % (auto) 21.3 %; Mean Corpuscular Hemoglobin 29.6 pg (25-34); Mean Corpuscular Hgb Conc 32.9 g/dL (32-36); Mean Platelet Volume 9.2 fL (7.4-10.4); Monocytes # (auto) 0.84 K/uL (0.11-0.59); Neutrophils # (auto) 7.39 K/uL (1.4-6.5); Neutrophils % (auto) 70.4 %; Platelet Count 292 K/uL (130-400); RDW Coefficient of Variation 12.7 % (11.5-14.5); Red Blood Count 4.12 M/uL (4.2-5.4); White Blood Count 10.49 K/uL (4.8-10.8)
[2020-04-29 06:23] LABS: Albumin Level 3.1 gm/dl (3.4-5.0); BUN Creatinine Ratio 13.1 (10-20); Bilirubin Direct 0.1 mg/dl (0-0.2); Calcium 8.5 mg/dl (8.5-10.1); Creatinine Clr Calc Pharmacy 176.4 ml/min; Est GFR (African American) 145.6; Est GFR (Non-African American) 125.7; Potassium 3.9 mmol/L (3.5-5.1)
--- NOTE | 2020-04-29 06:24 | Surgery Progress Note ---
Date of Service April 29, 2020 Assessment & Plan (1) Biliary colic: We will see her later this morning but most likely can be discharged instructions were given regarding wound care diet activity and meds Intraoperative findings were discussed with the patient Hopefully this nausea will resolve and may be just related to the surgery if not she will probably need further GI work-up we will see her back in the office in 1 week Present on Admission?: Yes Subjective Was sleeping but easily awoken only complaint is that she was nauseated yesterday after eating and she had some burning in her throat after surgery she had some abdominal pain going up to her chest and that pretty much is resolved Physical Exam Physical Exam: As stated above she was sleepy when I walked in easily awoken stating that her throat was burning little sore Abdomen is completely benign trocar sites without any drainage Results & Data Vital Signs (Past 12 Hours) Vital Signs Temp Pulse Resp BP Pulse Ox 04/29/20 04:01 36.8 C 57 L 17 114/68 93 04/28/20 23:31 36.7 C 60 22 117/63 95 04/28/20 19:51 36.5 C 74 17 127/78 92 PG Care Time/CCT Total # of Minutes Spent Total Time Spent with Patient: Total time spent is greater than 50% in coordination of care (as documented) at patient's floor/unit and/or counseling patient: Coding Level of Care Code None Diagnoses Biliary colic K80.50
[2020-04-29 06:25] LABS: Bilirubin,Total 0.4 mg/dl (0.2-1); Total Protein 6.9 gm/dl (6.4-8.2)
[2020-04-29] MEDS: PANTOprazole 40 MG TAB PO SCH (08:36)
--- NOTE | 2020-04-29 09:19 | Electrocardiogram Report ---
Test Reason : Blood Pressure : / mmHG Vent. Rate : 057 BPM Atrial Rate : 057 BPM P-R Int : 138 ms QRS Dur : 086 ms QT Int : 440 ms P-R-T Axes : 012 052 037 degrees QTc Int : 428 ms Sinus bradycardia Otherwise normal ECG No previous ECGs available Confirmed by Bernard Cali ([id number]) on 04/29/2020 9:18:35 AM Referred By: REFERRED SELF Confirmed By:Bernard Cali
[2020-04-29] MEDS: OXYCODONE HCL IR 5 MG TAB (IMMEDIATE RELEASE) PO PRN (11:17)
--- NOTE | 2020-04-29 14:16 | Discharge Summary ---
Date of Service April 29, 2020 Admission HPI Per Admitting Provider This is a 19y F with a PMH of anxiety who presents to the [facility] ED on 04/27/20 with complaints of abdominal pain associated with nausea/vomiting. Of significance the patient had been previously evaluated in our outpatient clinic for consideration of a lap. cholecystectomy as a referral by GI due to similar symptoms occurring over the past year. Her prior workup included a HIDA scan showing an EF of 49% and RUQ US showing no stones or GB wall thickening, along with a 4mm polyp vs sludge. She was evaluated and was scheduled for the OR for a lap crystal this upcoming with Dr. Ackerman, with the knowledge that even though her symptoms appear to be related to the gallbladder, that surgery may not alleviate her symptoms. Patient aware and wished to proceed with planning for surgery. Patient now presents to the ED today with N/V, abdominal pain she states started to worsen yesterday evening around 11:30pm. She vomited at least 6-7 times last night which has continued through today in the ED. Her abdominal pain is located mostly in the RUQ, rates it a 9/10, & says it radiates between her shoulder blades. Patient states that these symptoms occur almost every time she eats to some extent and that the pain is constant and never truly goes away. In the ED a repeat RUQ US was obtained revealing a suspected 4mm gallbladder polyp without stones or e/o acute cholecystitis. Her WBC is 13 and LFT's are within normal limits. Her last meal was yesterday around lunch time which consisted of a hoagie. Patient endorses + diarrhea and the shakes. She denies fevers/chills, chest pain or shortness of breath. Past surgical history includes a . She also had a colonoscopy by GI last August she says revealed polyps. Surgery was consulted for further evaluation. Principal Diagnosis Right upper quadrant pain Biliary Colic Discharge Exam awake/alert Gastrointestinal (Abdomen) Inspection/Auscultation: + abdominal surgical incision (c/d/i with steri strips in place) Percussion/Palpation: abdomen soft Discharge Data Allergies Allergy/AdvReac Type Severity Reaction Status Date / Time acetaminophen Allergy Unknown THROAT Verified 04/27/20 09:54 CLOSES Consultations 04/27/20 12:11 ED Decision to Admit Stat 04/27/20 14:14 Consult Gastroenterology Routine Procedures Performed Operation Date: 04/28/20 11:30 Actual Procedures p Laparoscopic Cholecystectomy with Cholangiogram - Isak Villagran MD Operation Date: 04/28/20 16:00 <No data on this case meets the specified criteria> Ordered Studies 04/27/20 08:54 US gallbladder Stat 04/28/20 09:20 FL cholangiogram OR Routine Hospital Course (1) Right upper quadrant abdominal pain: This is a 19y F who presented to the [facility] ED on 04/27/20 with complaints of right upper quadrant abdominal pain associated with nausea/vomiting. Of note patient was previously evaluated as an outpatient with GI for similar symptoms and was referred to surgery clinic with plans to perform cholecystectomy on 04/29. Unfortunately, the patient has a flare up in her symptoms prompting her to come to the ED before her scheduled procedure. On examination patient tender in the RUQ. US showed no stones or GB wall thickening, with sludge vs a GB polyp. WBC was 13, LFTs within normal limits. She was admitted for pain and nausea control and started on IV abx for elevated WBC, with plans to take her to the OR the following day. GI was consulted for consideration of an EGD and they recommended patient continue on a BID ppi with plans for an outpatient EGD after cholecystectomy. On 04/28 the patient went to the OR for a laparoscopic cholecystectomy with intraoperative cholangiogram with Dr. Villagran. The patient tolerated the procedure well, see op note for full details. The patient returned to the nursing floor in stable condition. Once arriving to the floor patient with complaints of chest pressure and some shortness of breath. EKG obtained revealed sinus bradycardia. Patient initially required some supplemental O2 that was eventually able to be titrated down to room air and her vital signs were otherwise stable. Symptoms likely related to gas pains from post-op vs. anxiety. She was provided with an incentive spirometer and after some time the symptoms dissipated on their own. On POD#1 patients diet was advanced as tolerated. She initially had some nausea, but otherwise symptoms were manageable. In the afternoon of 04/29 patient felt overall well and was d eemed stable for discharge to home. Her incisions were c/d/i. She was provided with discharge instructions and was asked to follow up with us in clinic within 1 week. Patient agreeable with the plan. Total Time Total Time Spent Total Time Spent (In Minutes): 15 Discharge Plan Discharge Items Patient Disposition: Home - Self-Care Reason For Visit: RUQ PAIN,N/V Discharge Diagnosis: laparoscopic cholecystectomy Activity: Per Instructions section Lifting: No more than 10 pounds Bathing Comment: may shower; no soaking in tubs/pools Exercise/Sports: Wait until after follow-up appointment Driving/Machine Use: do not resume driving while taking narcotics for pain Non-emergency contact: Surgeon Call non-emergency contact if: you have any medication questions, your symptoms worsen, your pain is not controlled, your pain is worsening, your pain is unusual for you, your pain is concerning for you, you have a fever, your temperature is above 101.5, your wound has increased redness, your wound has increased drainage and your wound pain has increased Follow-up/Referrals: Isak Villagran MD [Surgeon] - 05/05/20 10:30 am (Please call to schedule follow up in clinic within 1 week) Joana Avendano MD [Primary Care Provider] - Diet: Regular Addtl Attending Provider Instructions: You have small white bandages over your incisions called steri-strips. You may shower with these on, they will tend to fall off on their own within 7-10 days. Please follow up with your GI physician in regards to scheduling an outpatient EGD. Please continue to take Pantoprazole 40mg twice daily Pending Studies at Discharge: Yes Studies:: surgical pathology Stand-Alone Forms: My [facility] Silistix, Opioid Pain Management, Smoking Cessation Medications and DC Order Prescriptions: New oxycodone 5 mg tablet 5 - 10 mg PO .[id number] PRN (Reason: pain, for initial therapy, max 6 tabs per day) Qty: 10 RF: 0 Continued clindamycin phosphate 1 % lotion 1 appln TOP DAILY Qty: 60 RF: 2 spironolactone 100 mg tablet 100 mg PO DAILY Qty: 30 RF: 1 Mirena 20 mcg/24 hours (5 yrs) 52 mg intrauterine device 1 device IU UD RF: 0 tretinoin 0.05 % cream 1 applic TOP HS RF: 0 escitalopram oxalate [Lexapro] 10 mg tablet 10 mg PO HS RF: 0 Discharge Orders: Discharge Order (Routine); Ordered 04/29/20 Ordered By: Jammie Dumas/Other Patient Handouts: DVT Complications, DVT Post Op Prevention Admission Data Admit Date/Time: 04/27/20 14:11 Attending Provider: Isak Villagran Admit Provider: Isak Villagran Primary Care Provider: Joana Avendano Other Providers: Isak Villagran ; Nupur Ovalle Other Interventions: Discharge Summary Assessment (RN) Last Done: 04/29/20 12:35 Coding Level of Care Code D/C Day Management <30 mins Diagnoses Right upper quadrant abdominal pain R10.11
== END 2020-04-29 14:37 | disposition home or self-care (01) | DRG 419 ==
LOC: ED 08:29 → 3N 13:41

== ENCOUNTER 2024-09-26 05:37 | Inpatient (IN) ==
--- NOTE | 2024-09-17 13:48 | Anesthesiology Consultation ---
Date of Service September 17, 2024 Assessment & Plan (1) Encounter for pre-operative examination: - 03/10/2018 for failure to progress, IOL. Epidural was placed for labor L2-L3 1 attempt, patient reported pain while dissecting uterus and was converted to general anesthesia: Grade 1-2 view, MAC 4, ETT 6.5. - cardiology office visit 07/23/24 [place]: "...stable from a cardiovascular standpoint. Her intermittent sinus tachycardia is of no clinical concern. It may be related to anxiety over possible issues with her (gestational hypertension and diabetes). We will check an echocardiogram to assess left ventricular systolic function. At this point, would recommend no therapies for her brief and intermittent sinus tachycardia. Highly complex medical issues were managed and discussed today..." - Per industrial services worker on 09/17/24: No known infectious disease contacts, current infectious disease symptoms in past 10 days or COVID positive test result in the past 30 days. Chart Review Chart Review: entry clerk initiated History Surgery Operation Date: 10/03/24 07:30 Proposed Procedures p Section in LD (Delivery of Baby through Abdominal Incision ) - Sonya Joiner MD s with Bilateral Tubal Ligation - Sonya Joiner MD Height/Weight Height: 5 ft 9 in Weight: 127.006 kg Allergies Allergy/AdvReac Type Severity Reaction Status Date / Time acetaminophen Allergy Severe Anaphylaxis Verified 09/17/24 13:07 Medications Home Medications Medication Instructions Recorded Confirmed Last Taken acetone (urine) test (Ketone Urine #50 ea 05/23/24 09/16/24 Unknown Test strips) FreeStyle Eusebia 3 Plus Sensor #2 ea 07/28/24 09/16/24 Unknown (blood-glucose sensor) ondansetron HCl 4 mg tablet 4 mg PO Q6H PRN nausea and 08/31/24 09/17/24 09/05/24 vomiting #30 tabs triamcinolone acetonide 0.1 % 1 applic topical BID #15 grams 09/03/24 09/17/24 09/11/24 topical cream aspirin 81 mg tablet,delayed 81 mg PO DAILY 09/12/24 09/17/24 09/12/24 07:00 release vits no.124-ferrous fum 1 tab PO DAILY 09/12/24 09/17/24 09/12/24 07:00 27 mg iron-folic acid 800 mcg tablet ( Vitamin) Past Medical History Medical History Anesthesia complication states was not numb and could feel being sutured, after last ; had an epidural Asthma well controlled - rarely uses inhaler ETD (eustachian tube dysfunction) KENNETH (generalized anxiety disorder) GERD (gastroesophageal reflux disease) no current medications Gestational diabetes Gestational hypertension Hemorrhoids History of Lyme disease dx March 2023 - fatigue and muscle aches continue/no change in baseline. History of tachycardia r/t Hx of appendicitis no surgery Hx of cardiac murmur [place] [facility] Hx of colonic polyps IBS (irritable bowel syndrome) Left breast mass monitoring Migraine Mixed hearing loss, bilateral NAFLD (nonalcoholic fatty liver disease) Polycystic ovary syndrome Rhinitis r/t seasonal allergies Seasonal allergies Past Family History Family History Aunt Breast cancer Grandfather (Paternal) Colorectal cancer Father Diabetes Hypertension Heart problem Aunt Breast cancer Mother Bipolar disorder Migraine headache Cancer melanoma Grandmother (Maternal) Migraine headache Brother No problems noted. Sister Bipolar disorder Sister No problems noted. Sister No problems noted. Daughter No problems noted. Other No family history of adverse response to anesthesia No family history of bleeding disorder Denies family history of Ovarian cancer Prostate cancer Myocardial infarction Past Surgical History Surgical History H/O removal of cyst face History of section History of colonoscopy 08/2019 History of tonsillectomy Hx laparoscopic cholecystectomy (05/04/20) Laparoscopic Cholecystectomy with Cholangiogram Dr. Villagran 04/28/2020 S/p bilateral myringotomy with tube placement Social History Smoking Status: Never smoker Do You Dip or Chew Tobacco: No Hx Alcohol Use: No Hx Substance Use: No substance use type: does not use Lab Results Anesthesia Preop Results Results Anesthesia Widget: WBC 9.13 K/ul (4.8-10.8) 09/12/24 Hgb 10.6 g/dl (12.0-16.0) L 09/12/24 Hct 32.2 % (37.0-47.0) L 09/12/24 Plt 237 K/uL (130-400) 09/12/24 Na 136 mmol/L (136-145) 09/12/24 K 3.6 mmol/L (3.5-5.1) 09/12/24 Cl 107 mmol/L (98-107) 09/12/24 CO2 21 mmol/L (21-32) 09/12/24 BUN 5 mg/dl (6-23) L 09/12/24 Creat 0.34 mg/dl (0.6-1.2) L 09/12/24 Glucose Level 111 mg/dl (70-99(Fasting)) H 09/12/24 Urine Color Yellow 07/22/24 Urine Appearance Cloudy (Clear) A 07/22/24 Urine pH 7.0 (4.5-7.5) 07/22/24 Urine Specific Holton 1.020 (1.000-1.030) 07/22/24 Urine Protein Negative (Negative) 07/22/24 Urine Glucose (UA) Negative (Negative) 07/22/24 Urine Ketones Negative (Negative) 07/22/24 Urine Blood Negative (Negative) 07/22/24 Urine Nitrite Negative (Negative) 07/22/24 Urine Bilirubin Negative (Negative) 07/22/24 Urine Urobilinogen Negative (Negative) 07/22/24 Urine Leukocyte Esterase Negative (Negative) 07/22/24 Urine WBC (Auto) 0-5 /hpf (0-5) 07/22/24 Urine RBC (Auto) 0-2 /hpf (0-2) 07/22/24 Urine Hyaline Casts (Auto) 0-2 /lpf (0-2) 07/22/24 Urine Epithelial Cells (Auto) 0-2 /hpf (0-2) 07/22/24 Urine Bacteria (Auto) None Seen (None Seen) 07/22/24 Antibody Screen NEGATIVE 07/22/24 Testing Electrocardiogram Date: 07/10/24 Sinus tachycardia, rate 101 bpm Nonspecific T wave abnormality Echocardiogram Date: 08/14/24 EF 65-70% Normal LV wall motion No significant valvular pathology Other Testing Cardiac event monitor 11/20/23 Sinus rhythm (44, 69 and 133 bpm) Occasional PVCs, 1% of all beats
--- NOTE | 2024-09-25 13:06 | History & Physical Report ---
Date of Service September 25, 2024 Assessment & Plan (1) Previous delivery affecting : Plan: Will plan for repeat section with tubal sterilization. Reviewed consent today in detail. Questions answered. (2) Chronic hypertension affecting : History of Present Illness Chief Complaint: repeat section Primary Care Provider: Joana Avendano MD 24yo with EDC 10/10/24 scheduled for 38w delivery d/t cHTN and by repeat section. Also desires tubal sterilization. and Delivery Plans GBS + CHTN *Baby ASA daily start 12-28 wks, continue until delivery *wkly NST's @32wks and twice wkly @36 wks *Serial Growth US @ 24 (doppler only if abnml) *Baseline 24hr urine (additioinal PRN) *weekly GAGE's @ 32wk(If on Meds) *Deliver [id number] (If on Meds) *Deliver [id number] (Not on Meds) Prior -desires repeat (38wk) C/S WITH TUBAL SCHEDULED FOR 10/03/[address] DE LA FUENTE C/S WITH TUBAL RESCHEDULED TO 09/26/[address] BRUNO Obesity (BMI between 35-39 @ beginning of ) *Growth US @ 32 wks *Weekly NSTs @ 36wks GHTN in prior -baseline labs, baby asa Hx of Heart Murmur Tachycardia in *Cardiology Consult - 07/23 Rh Negative *Rhogam at 28 weeks -Rhogam given 07/22/24- MK Rubella Equivocal Hep B Non-Immune *Recommend vaccine GDM w/16wk glucola 191-patient elects to be treated *Begin monthly Growth US's @24wks Polyhydramnios *Weekly NSTs if fluid 12 or greater *Weekly AFIs @ Dx *If pocket >16 refer to [facility] *Deliver between [id number] Allergies Allergy/AdvReac Type Severity Reaction Status Date / Time acetaminophen Allergy Severe Anaphylaxis Verified 09/25/24 08:31 Home Medications Medication Instructions Recorded Confirmed Type acetone (urine) test (Ketone Urine #50 ea 05/23/24 09/25/24 Rx Test strips) MulliganPlus Eusebia 3 Plus Sensor #2 ea 07/28/24 09/25/24 Rx (blood-glucose sensor) ondansetron HCl 4 mg tablet 4 mg PO Q6H PRN nausea and 08/31/24 09/25/24 Rx vomiting #30 tabs triamcinolone acetonide 0.1 % 1 applic topical BID #15 grams 09/03/24 09/25/24 Rx topical cream aspirin 81 mg tablet,delayed 81 mg PO DAILY 09/12/24 09/25/24 History release vits no.124-ferrous fum 1 tab PO DAILY 09/12/24 09/25/24 History 27 mg iron-folic acid 800 mcg tablet ( Vitamin) Patient History Medical History Anesthesia complication states was not numb and could feel being sutured, after last ; had an epidural Asthma well controlled - rarely uses inhaler ETD (eustachian tube dysfunction) KENNETH (generalized anxiety disorder) GERD (gastroesophageal reflux disease) no current medications Gestational diabetes Gestational hypertension Hemorrhoids History of Lyme disease dx March 2023 - fatigue and muscle aches continue/no change in baseline. History of tachycardia r/t Hx of appendicitis no surgery Hx of cardiac murmur [place] [facility] Hx of colonic polyps IBS (irritable bowel syndrome) Left breast mass monitoring Migraine Mixed hearing loss, bilateral NAFLD (nonalcoholic fatty liver disease) Polycystic ovary syndrome Rhinitis r/t seasonal allergies Seasonal allergies Surgical History H/O removal of cyst face History of section History of colonoscopy 08/2019 History of tonsillectomy Hx laparoscopic cholecystectomy (05/04/20) Laparoscopic Cholecystectomy with Cholangiogram Dr. Villagran 04/28/2020 S/p bilateral myringotomy with tube placement Family History Aunt Breast cancer Grandfather (Paternal) Colorectal cancer Father Diabetes Hypertension Heart problem Aunt Breast cancer Mother Bipolar disorder Migraine headache Cancer melanoma Grandmother (Maternal) Migraine headache Brother No problems noted. Sister Bipolar disorder Sister No problems noted. Sister No problems noted. Daughter No problems noted. Other No family history of adverse response to anesthesia No family history of bleeding disorder Denies family history of Ovarian cancer Prostate cancer Myocardial infarction Social History Smoking Status: Never smoker Second Hand Exposure: No; Do You Dip or Chew Tobacco: No; Hx Alcohol Use: No Hx Substance Use: No Preferred Language: Slovenian Communication Ability: Effective Visual Impairment: No Limitations Hearing Ability: Normal Bilingual Loan Processor Required: No Beliefs That Will Affect Care: None marital status: marital status details: Yony (30) [phone] Current Living Situation: Spouse and Family Current Living Situation Comment: lives with , daughter, current occupational status: employed 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[employer] [employer] How many Children do You have: 1 Feels Safe at Home: Yes Childhood Exposure to Second-Hand Smoke: No Diet: regular caffeine: No Dental Care, Regularly: Yes Physical Activity Frequency: Daily Seatbelt Use: always Sunscreen Use: Yes Assistive Devices: Contacts and Glasses Review of Systems All systems reviewed & are unremarkable except as noted in HPI & below Physical Exam Constitutional: WD/WN, vitals as above Respiratory: normal respiratory effort, lungs clear to auscultation no respiratory distress Cardiovascular: Rate/Rhythm: regular rate and regular rhythm Gastrointestinal (Abdomen): Inspection/Auscultation: abdomen normal to inspection Percussion/Palpation: abdomen soft; abdomen nontender Gravid. No s/s chorio or abruption. Skin: no rashes, warm and dry Psychiatric: A+Ox3, euthymic affect Coding Level of Care Code None Diagnoses Previous delivery affecting O34.219 Chronic hypertension affecting O10.919
[2024-09-26 06:10] LABS: Hematocrit (blood only) 32.1 % (37.0-47.0); Hemoglobin 10.9 g/dl (12.0-16.0); Mean Corpuscular Hemoglobin 28.8 pg (25.0-34.0); Mean Corpuscular Volume 84.7 fL (80.0-100.0); Mean Platelet Volume 10.3 fL (9.4-12.4); Platelet Count 226 K/uL (130-400); RDW Coefficient of Variation 15.7 % (11.5-14.5); RDW Standard Deviation 46.7 fL (36.4-46.3); Red Blood Count 3.79 M/uL (4.20-5.40); White Blood Count 9.36 K/ul (4.8-10.8)
[2024-09-26] MEDS ORDERED: SODIUM CHLORIDE 0.9% 100 ML IV PRN (06:10)
[2024-09-26] MEDS ORDERED: SODIUM CHLORIDE 0.9% 50 ML IV PRN (06:10)
[2024-09-26] MEDS ORDERED: SODIUM CHLORIDE 0.9% 1,000 ML IV SCH (06:45)
--- NOTE | 2024-09-26 07:16 | History & Physical Bridge Note ---
Date of Service September 26, 2024 History & Physical Bridge Note I have examined the patient, reviewed the History & Physical and in the interval since the performance of the History & Physical I have noted the following changes of clinical significance: no changes noted
[2024-09-26] MEDS: SODIUM CHLORIDE 0.9% 1,000 ML IV SCH (07:24)
[2024-09-26] MEDS: ceFAZolin 3000MG 3,000 MG/72.5 ML BAG IV SCH (07:26)
[2024-09-26] MEDS ORDERED: MoRPHine SULFATE PF 1 MG/ML 10 ML AMP/VIAL ONE (07:28)
[2024-09-26] MEDS: CITRIC ACID/SODIUM CITRATE 15 ML UDC PO SCH (07:29)
[2024-09-26] MEDS ORDERED: ONDANSETRON INJ 2 MG/ML 2 ML VIAL ONE (07:34)
[2024-09-26] MEDS ORDERED: KETOROLAC 30 MG/ML VIAL ONE (08:06)
[2024-09-26] MEDS ORDERED: OXYTOCIN 10 UNITS/ML VIAL ONE (08:06)
[2024-09-26 08:40] LABS: Base Excess Cord Arterial Bld 0.7 mEq/L (-9-1.8); CO2 Cord Arterial Blood 60 mmHg (39.1-73.5); HCO3 Cord Arterial Blood 29 mmol/L (19.7-28.5); Oxygen Sat Cord Arterial Blood < 60.0 % (<60); PO2 Cord Arterial Blood < 20 mmHg (4.1-31.7); pH Cord Arterial Blood 7.29 (7.1-7.38)
[2024-09-26 08:41] LABS: Base Excess Cord Venous Blood 0.9 mEq/L (-7.7-1.9); Cord Venous Blood HCO3 27 mmol/L (18.4-26.8); Cord Venous Blood PCO2 45 mmHg (30.4-57.2); Cord Venous Blood PO2 36 mmHg (14.1-43.3); Cord Venous Blood pH 7.38 (7.20-7.44); O2 Saturation Cord Venous Bld 70.2 % (<68)
--- NOTE | 2024-09-26 09:05 | Operative Report ---
PG Post Operative Report Pre & Post Diagnosis Operation Date: 09/26/24 07:30 Pre: h/o x 1, desire for repeat with sterilization, chronic hypertension, GDM Post: same I identified the patient and participated in the time-out.: Yes Procedure Operation Date: 09/26/24 07:30 Repeat Low Transverse Section, bilatera salpingectomy Surgeon Nicole Ambrose, DO Distributor Sales Consultant Maricarmen Son MD Estimated Blood Loss 416 (QBL) Findings Consistent with Post-Op Diagnosis Viable female , Apgars 8/9. Weight 8#14. Specimens placenta, cord blood, cord gas Drains coppola clear yellow Anesthesia Type Spinal Complications none Disposition Accompanied Patient To Recovery: Yes Disposition: L&D Indications 24yo @ 38 0/7, cHTN, h/o x 1, desire for repeat and tubal sterilization, [id number] Description of Procedure The patient was seen in her labor and delivery room, risks benefits and alternatives to surgery were reviewed. Informed consent obtained. Questions were answered. She was taken to the operating room, spinal anesthesia was administered. She was then prepared and draped in the usual sterile fashion in the supine position with a leftward tilt. Timeout was confirmed. A Pfannenstiel skin incision was made with a scalpel, and carried through to the underlying layer of fascia. Fascia was nicked at midline, and this incision was extended bilaterally. The superior aspect of the fascial incision was grasped with Jose clamps x2, elevated off the underlying rectus abdominis muscles, and dissected sharply and bluntly. In similar fashion, the inferior aspect of the fascial incision was dissected. The rectus abdominis muscles were , and the peritoneum was entered bluntly digitally. This was extended bilaterally. The bladder flap was taken down carefully using Metzenbaum scissors. Using a new scalpel, a low transverse uterine incision was created. Clear amniotic fluid noted. The was delivered from a cephalic presentation with gentle Kiwi vacuum assist. The head delivered, followed by shoulders and body. Spontaneous cry on the field. The cord was doubly clamped and cut, and the was handed off to the waiting basketball player. A segment was retained for cord gases. Cord blood was obtained. The placenta was delivered spontaneously intact. The uterus was e xteriorized, and cleared of all clots and debris. The hysterotomy incision was reapproximated using 0 Vicryl in a running locked stitch. A second layer of the same suture was used to imbricate the incision. Posterior uterus was evaluated and normal. Right fallopian tube identified to fimbria, grasped with Vanessa, and transected from mesosalpinx with handheld Ligasure device. This was then transected from the uterus and passed off for path. In a similar fashion, the left fallopian tube was identified and transected and passed off. The uterus was returned to the abdomen, and gutters were cleared of clots and debris. Excellent hemostasis was observed. The fascial incision was reapproximated using 0 Vicryl in a running stitch. The subcutaneous tissue was irrigated, and reapproximated using 2-0 plain gut in a running stitch. The skin was reapproximated using 4-0 Vicryl in a running subcuticular stitch. DARIA bandage was applied. The patient tolerated the procedure well, and will be taken to the recovery area in stable and good condition. I attest to the content of the Intraoperative Record and any orders documented therein. Any exceptions are noted below. OB Procedure Charges [id number] Add on Tubal for C/S
[2024-09-26] MEDS: OXYTOCIN 20 UNITS/1002ML LR IV ONE (09:06)
[2024-09-26] MEDS ORDERED: NALBUPHINE HCL INJ 10 MG/ML AMP IV PRN (09:18)
[2024-09-26] MEDS ORDERED: ePHEDrine sulfate 50 MG/ML AMP IV PRN (09:18)
[2024-09-26] MEDS ORDERED: HYDROmorphone INJ 0.5 MG/0.5 ML SYR IV PRN (09:18)
[2024-09-26] MEDS ORDERED: MEPERIDINE HCL 25 MG/ML CARP/VIAL IV PRN (09:18)
[2024-09-26] MEDS ORDERED: oxyCODONE HCL IR 5 MG TAB (IMMEDIATE RELEASE) PO PRN (09:18)
[2024-09-26] MEDS ORDERED: NALOXONE HCL 1 MG in SODIUM CHLORIDE 0.9% 1,000 ML IV PRN (09:18)
[2024-09-26] MEDS ORDERED: diphenhydrAMINE 50 MG/ML VIAL IV PRN (09:18)
[2024-09-26] MEDS ORDERED: ONDANSETRON INJ 2 MG/ML 2 ML VIAL IV PRN (09:18)
[2024-09-26] MEDS ORDERED: MoRPHine SULFATE 2 MG/ML CARP IV PRN (09:18)
[2024-09-26] MEDS ORDERED: NALOXONE HCL 0.4 MG/1 ML VIAL/CARP IV PRN (09:18)
[2024-09-26] MEDS ORDERED: NALOXONE HCL 0.08 MG in SYRINGE 1.8 ML IV PRN (09:18)
[2024-09-26] MEDS ORDERED: SENNA 8.6 MG TAB PO PRN (09:27)
[2024-09-26] MEDS ORDERED: BENZOCAINE 20% SPRY 85 APPLN/85 GM CAN EXT PRN (09:27)
[2024-09-26] MEDS ORDERED: CALCIUM CARBONATE 500 MG CHEWABLE TAB PO PRN (09:27)
[2024-09-26] MEDS ORDERED: HYDROCORTISONE ACETATE 25 MG SUPP PR PRN (09:27)
[2024-09-26] MEDS ORDERED: PROMETHAZINE 12.5 MG/50.5 ML BAG IV PRN (09:27)
[2024-09-26] MEDS ORDERED: MAGNESIUM HYDROXIDE SUSP 30 ML UDC PO PRN (09:27)
[2024-09-26] MEDS ORDERED: NO NARCOTICS OR SEDATIVES SCH (09:30)
[2024-09-26] MEDS ORDERED: DC INTRASPINAL MORPHINE SCH (09:30)
[2024-09-26] MEDS: KETOROLAC 30 MG/ML VIAL IV SCH (10:38)
[2024-09-26] MEDS: DIPHTHER/TETAN/PERTUS Vaccine (Tdap, Adol/Adult) 0.5mL IM ONE (10:39)
[2024-09-26] MEDS: OXYTOCIN 20 UNITS/LR 1,002 ML IV SCH (10:39)
[2024-09-26] MEDS: MoRPHine SULFATE PF 1 MG/ML 10 ML AMP/VIAL INT SPINAL ONE (10:40)
[2024-09-26] MEDS: PROMETHAZINE 6.25 MG/50.25 ML BAG IV PRN (11:57)
[2024-09-26] MEDS: SIMETHICONE 80 MG CHEW PO SCH (12:41)
[2024-09-26] MEDS ORDERED: PROMETHAZINE 6.25 MG/50.25 ML BAG IV STA (15:32)
[2024-09-26] MEDS: DOCUSATE SODIUM 100 MG CAP PO SCH (20:06)
[2024-09-26 21:13] LABS: Hematocrit (blood only) 29.7 % (37.0-47.0); Hemoglobin 9.8 g/dl (12.0-16.0); Mean Corpuscular Hemoglobin 28.3 pg (25.0-34.0); Mean Corpuscular Volume 85.8 fL (80.0-100.0); Mean Platelet Volume 10.5 fL (9.4-12.4); Platelet Count 226 K/uL (130-400); RDW Coefficient of Variation 15.5 % (11.5-14.5); RDW Standard Deviation 47.1 fL (36.4-46.3); Red Blood Count 3.46 M/uL (4.20-5.40); White Blood Count 12.54 K/ul (4.8-10.8)
[2024-09-26 21:25] LABS: Albumin Level 2.8 gm/dl (3.4-5.0); BUN Creatinine Ratio 17.5 (10-20); Bilirubin,Total 0.3 mg/dl (0.2-1.0); Calcium 8.4 mg/dl (8.6-10.3); Creatinine Clr Calc Pharmacy 193.4 ml/min; Globulin 2.8 gm/dl (2.5-4.0); Total Protein 5.6 gm/dl (6.0-8.3)
--- NOTE | 2024-09-26 21:35 | Anesthesiology Progress Note ---
Date of Service September 26, 2024 Anesthesia Post Procedure Vital Signs Vital Signs: Temp Pulse Pulse Resp BP BP Pulse Ox 09/26/24 21:00 16 99 09/26/24 20:41 156/84 H 09/26/24 20:30 16 99 09/26/24 19:08 36.8 C 72 18 158/76 H 98 09/26/24 17:30 18 100 09/26/24 16:30 18 98 09/26/24 15:45 18 97 09/26/24 15:34 36.5 C 86 16 133/75 96 09/26/24 14:15 18 96 09/26/24 13:15 16 97 09/26/24 12:15 16 97 09/26/24 11:15 16 98 09/26/24 11:09 74 100 09/26/24 11:07 68 14 140/79 100 09/26/24 11:07 68 140/79 09/26/24 11:04 74 99 09/26/24 10:59 112 H 97 09/26/24 10:58 74 91 09/26/24 10:54 71 100 09/26/24 10:49 66 99 09/26/24 10:48 63 129/71 09/26/24 10:44 67 100 09/26/24 10:39 63 99 09/26/24 10:38 68 14 132/75 99 09/26/24 10:38 68 132/75 09/26/24 10:34 68 99 09/26/24 10:29 71 100 09/26/24 10:28 64 139/75 09/26/24 10:24 79 99 09/26/24 10:19 66 99 09/26/24 10:18 77 147/74 H 09/26/24 10:14 104 H 97 09/26/24 10:09 66 99 09/26/24 10:08 71 14 116/66 99 09/26/24 10:08 65 116/66 09/26/24 10:04 66 97 09/26/24 09:59 86 94 09/26/24 09:58 85 15 112/86 97 09/26/24 09:58 85 112/86 09/26/24 09:57 79 93 09/26/24 09:54 80 96 09/26/24 09:49 81 97 09/26/24 09:48 86 15 136/79 96 09/26/24 09:48 83 136/79 09/26/24 09:44 107 H 98 09/26/24 09:39 68 97 09/26/24 09:38 64 22 133/76 97 09/26/24 09:38 64 133/76 09/26/24 09:34 98 09/26/24 09:34 72 09/26/24 09:34 72 94 09/26/24 09:29 66 98 09/26/24 09:28 69 14 136/68 97 09/26/24 09:28 65 136/68 09/26/24 09:24 66 98 09/26/24 09:22 58 L 128/65 09/26/24 09:19 72 97 09/26/24 09:18 76 14 147/78 H 97 09/26/24 09:18 147/78 H 09/26/24 09:14 76 94 09/26/24 09:09 63 99 09/26/24 09:06 36.5 C 70 16 138/79 98 09/26/24 09:06 69 138/79 09/26/24 09:04 62 97 09/26/24 07:04 36.7 C 75 18 133/82 09/26/24 05:46 36.6 C 18 O2 Del Method 09/26/24 21:00 09/26/24 20:41 09/26/24 20:30 09/26/24 19:08 Room Air 09/26/24 17:30 09/26/24 16:30 09/26/24 15:45 09/26/24 15:34 Room Air 09/26/24 14:15 09/26/24 13:15 09/26/24 12:15 09/26/24 11:15 09/26/24 11:09 09/26/24 11:07 09/26/24 11:07 09/26/24 11:04 09/26/24 10:59 09/26/24 10:58 09/26/24 10:54 09/26/24 10:49 09/26/24 10:48 09/26/24 10:44 09/26/24 10:39 09/26/24 10:38 09/26/24 10:38 09/26/24 10:34 09/26/24 10:29 09/26/24 10:28 09/26/24 10:24 09/26/24 10:19 09/26/24 10:18 09/26/24 10:14 09/26/24 10:09 09/26/24 10:08 09/26/24 10:08 09/26/24 10:04 09/26/24 09:59 09/26/24 09:58 09/26/24 09:58 09/26/24 09:57 09/26/24 09:54 09/26/24 09:49 09/26/24 09:48 09/26/24 09:48 09/26/24 09:44 09/26/24 09:39 09/26/24 09:38 09/26/24 09:38 09/26/24 09:34 09/26/24 09:34 09/26/24 09:34 09/26/24 09:29 09/26/24 09:28 09/26/24 09:28 09/26/24 09:24 09/26/24 09:22 09/26/24 09:19 09/26/24 09:18 09/26/24 09:18 09/26/24 09:14 09/26/24 09:09 09/26/24 09:06 09/26/24 09:06 09/26/24 09:04 09/26/24 07:04 09/26/24 05:46 Pain Intensity Lower Abdomen: Pain Intensity: 1 Transfer of Care Handoff Completed per policy Notes Mental Status: alert / awake / arousable Nausea / Vomiting: adequately controlled Pain: adequately controlled Airway Patency, RR, SpO2: stable & adequate BP & HR: stable & adequate Hydration State: stable & adequate Neuraxial Anesthesia: was administered and sensory block is resolving Anesthetic Complications: no major complications apparent and Pt Satisfied with anesthetic care
[2024-09-27] MEDS ORDERED: SODIUM CHLORIDE 0.9% 1,000 ML IV SCH (01:45)
[2024-09-27] MEDS ORDERED: HYDROmorphone INJ 0.5 MG/0.5 ML SYR IV PRN (03:18)
[2024-09-27] MEDS ORDERED: diphenhydrAMINE 50 MG/ML VIAL IV PRN (03:18)
[2024-09-27] MEDS ORDERED: ONDANSETRON INJ 2 MG/ML 2 ML VIAL IV PRN (03:18)
[2024-09-27] MEDS ORDERED: diphenhydrAMINE Capsule 25 MG CAP PO PRN (03:18)
--- NOTE | 2024-09-27 06:16 | Obstetrical Progress Note ---
Date of Service September 27, 2024 Assessment & Plan (1) state: (2) Calf tenderness: (3) Status post : (4) S/P tubal ligation: Plan Andrew is a 24yo day 1 s/p scheduled with b/l tubal ligation. Feels generally well today, VSS. Continue care Doppler of RLE for R calf pain, concern for DVT Encourage ambulation and Pain control as needed Hgb: 9.8 on 09/26/24 Plans to go home within the next few days. Followup with Dr. Ambrose in 6wks. Admission and Anticipated Discharge Date Admission Date: September 26, 2024 Supervising Physician Co-Signing Physician Notes Resident Physician Supervision Note: I interviewed and examined the patient. Discussed with Dr. Hermosillo and agree with findings and plan as documented in the note. Any exceptions or clarifications are listed here: POD#1 doing well. R LE on exam appears benign, will obtain doppler to r/o DVT. Routine postop care. DARIA dressing removal at POD 7 - patient is aware to be seen in office for this. Documented By: Nicole Ambrose, DO Subjective Andrew is a 24yo day 1 s/p scheduled with b/l tubal ligation. Feeling well this AM, endorses some sleep overnight. Pain: endorses RLQ pain 3/10 lying down but up to 7/10 when moving; mild R calf pain Ambulation: yes Gas: yes Voiding: urinating, no BM yet Lochia: decreasing Diet: tolerating since dinner last night, no n/v this AM Feeds: and supplementing as needed Endorses some generalized itchiness, R calf tenderness Denies headache, chest pain, SOB, n/v/d, LE swelling, LE numbness/tingling. Review of Systems Review of Systems: denies fever, body aches, chills, sweats, vision changes, significant vaginal bleeding or discharge Physical Exam Physical Exam: General: A&Ox3, resting comfortably in bed, in no apparent distress, nontoxic in appearance Skin: warm, dry, intact HEENT: EOM intact, PERRL b/l Cardiovascular: RRR, +s1/s2, no murmurs/rubs/gallops Pulmonary: clear to auscultation b/l, no wheezes/rales/rhonchi GI/Abd: +BS, low-transverse surgical scar with adhesive dressing applied, some tenderness to palpation of R end of scar but otherwise nontender and does not appear to be swollen, no new blood or fluid seen; RLQ tenderness to palpation - unable to palpate discrete uterine fun dus but generally soft and nontender to palpation of abdomen aside from RLQ Extremities: tenderness to palpation of RLE calf, no significant swelling or erythema of b/l LE, negative Vick's b/l; warm, no clubbing or cyanosis Neuro: no facial droop, speech intact, moves all extremities on command Results & Data Vital Signs (Past 12 Hours) Vital Signs Temp Pulse Resp BP Pulse Ox O2 Del Method 09/27/24 03:13 36.7 C 74 18 133/75 97 Room Air 09/27/24 03:00 16 99 09/27/24 02:00 16 98 09/27/24 01:00 18 99 09/27/24 00:15 18 99 09/26/24 23:00 16 99 09/26/24 22:37 37 C 67 18 142/77 H 97 Room Air 09/26/24 22:00 16 99 09/26/24 21:00 16 99 09/26/24 20:41 156/84 H 09/26/24 20:30 16 99 09/26/24 19:08 36.8 C 72 18 158/76 H 98 Room Air Laboratory Results Abnormal lab results 09/26/24 09/26/24 Range/Units 20:56 Unknown WBC 12.54 H (4.8-10.8) K/ul RBC 3.46 L (4.20-5.40) M/uL Hgb 9.8 L (12.0-16.0) g/dl Hct 29.7 L (37.0-47.0) % RDW Std Deviation 47.1 H (36.4-46.3) fL RDW Coeff of Nuris 15.5 H (11.5-14.5) % Cord ABG HCO3 29 H (19.7-28.5) mmol/L Cord VBG HCO3 27 H (18.4-26.8) mmol/L Cord VBG O2 Sat 70.2 H (<68) % Sodium 133 L (136-145) mmol/L Calcium 8.4 L (8.6-10.3) mg/dl Total Protein 5.6 L (6.0-8.3) gm/dl Albumin 2.8 L (3.4-5.0) gm/dl Resident Activity Tracking Resident Involvement: Resident Care Provided Care Provided: OB Delivery
[2024-09-27 07:53] LABS: Basophils # (auto) 0.01 K/uL (0.00-0.20); Basophils % (auto) 0.1 %; Eosinophils # (auto) 0.02 K/uL (0.00-0.50); Eosinophils % (auto) 0.2 %; Hematocrit (blood only) 28.1 % (37.0-47.0); Hemoglobin 9.2 g/dl (12.0-16.0); Immature Granulocytes # (auto) 0.05 K/uL (0.01-0.20); Immature Granulocytes % (auto) 0.5 %; Lymphocytes # (auto) 1.35 K/uL (1.20-3.40); Lymphocytes % (auto) 14.6 %; Mean Corpuscular Hemoglobin 28.5 pg (25.0-34.0); Mean Corpuscular Hgb Conc 32.7 g/dL (32.0-36.0); Mean Platelet Volume 10.8 fL (9.4-12.4); Monocytes # (auto) 0.97 K/uL (0.11-0.59); Monocytes % (auto) 10.5 %; Neutrophils # (auto) 6.86 K/uL (1.40-6.50); Neutrophils % (auto) 74.1 %; Platelet Count 205 K/uL (130-400); RDW Coefficient of Variation 15.9 % (11.5-14.5); RDW Standard Deviation 49.7 fL (36.4-46.3); Red Blood Count 3.23 M/uL (4.20-5.40); White Blood Count 9.26 K/ul (4.8-10.8)
[2024-09-27] MEDS: PRENATAL VITAMIN 1 TAB PO SCH (08:02)
[2024-09-27] MEDS: oxyCODONE HCL IR 5 MG TAB (IMMEDIATE RELEASE) PO PRN (08:02)
[2024-09-27] MEDS: FERROUS SULFATE 325 MG TAB PO SCH (08:02)
[2024-09-27] MEDS ORDERED: KETOROLAC 30 MG/ML VIAL IV PRN (08:57)
--- NOTE | 2024-09-27 11:02 | Ultrasound Report ---
US venous doppler LE RT CLINICAL HISTORY: R LE calf pain, r/o DVT TECHNIQUE: Right lower extremity real-time compression venous ultrasound with Color Doppler imaging. Utilizing real-time ultrasonic imaging multiple real time high-resolution ultrasonic images with comp ression and noncompression maneuvers of the deep venous system in addition to color doppler imaging w ere performed from the common femoral vein through the proximal calf veins. COMPARISON: None available at the time of this dictation. FINDINGS/IMPRESSION: No deep venous thrombus, there is normal compressibility of the deep venous system from the common fe moral vein through the proximal calf veins. No superficial venous thrombosis is identified. ACT 112: Negative or not required by law. Electronically signed by: Frank Isaacs M.D. 09/27/2024 11:01 AM
[2024-09-27] MEDS: IBUPROFEN 600 MG TAB PO SCH (11:15)
[2024-09-27] MEDS: bisacodyL 5 MG TABEC PO SCH (20:19)
[2024-09-28 07:30] LABS: Hematocrit (blood only) 28.8 % (37.0-47.0); Hemoglobin 9.2 g/dl (12.0-16.0)
[2024-09-28 07:34] VITALS: O2SAT 97
[2024-09-28] MEDS ORDERED: bisacodyL 10 MG SUPP PR PRN (08:57)
--- NOTE | 2024-09-28 09:41 | Obstetrical Progress Note ---
Date of Service September 28, 2024 Assessment & Plan (1) Status post : Day 2 status post repeat . Patient doing well. Stable for discharge if preferred (2) state: Subjective Ambulation: ambulating normally Voiding: no voiding problems Passing Gas:: Yes Diet Tolerance:: regular diet Lochia:: Moderate Feeding Type:: breast feeding Physical Exam Constitutional WD/WN, vitals as above Respiratory normal respiratory effort; no respiratory distress and no labored breathing Cardiovascular Extremities: no calf tenderness Gastrointestinal (Abdomen) Inspection/Auscultation: abdomen normal to inspection; abdomen not distended Percussion/Palpation: abdomen soft; abdomen nontender, no guarding and abdomen not rigid Genitourinary OB Exam Abdomen: + fundal height Fundus: + firm and + relation to umbilicus (Below); not tender or not boggy Results & Data Vital Signs (Past 12 Hours) Vital Signs Temp Pulse Resp BP Pulse Ox O2 Del Method 09/28/24 07:33 36.7 C 62 20 120/66 97 Room Air 09/27/24 23:01 36.5 C 64 16 138/76 98 Room Air
[2024-09-28 10:29] VITALS: RESP 18; TEMP 98.4
[2024-09-28] MEDS: IBUPROFEN 600 MG TAB PO PRN (11:11)
[2024-09-28 14:55] VITALS: BP 120/66; PULSE 62
--- NOTE | 2024-09-29 11:59 | Discharge Summary ---
Date of Service September 29, 2024 Admission HPI Per Admitting Provider 24yo with EDC 10/10/24 scheduled for 38w delivery d/t cHTN and by repeat section. Also desires tubal sterilization. and Delivery Plans GBS + CHTN *Baby ASA daily start 12-28 wks, continue until delivery *wkly NST's @32wks and twice wkly @36 wks *Serial Growth US @ 24 (doppler only if abnml) *Baseline 24hr urine (additioinal PRN) *weekly GAGE's @ 32wk(If on Meds) *Deliver [id number] (If on Meds) *Deliver [id number] (Not on Meds) Prior -desires repeat (38wk) C/S WITH TUBAL SCHEDULED FOR 10/03/[address] DE LA FUENTE C/S WITH TUBAL RESCHEDULED TO 09/26/[address] AMBROSE Obesity (BMI between 35-39 @ beginning of ) *Growth US @ 32 wks *Weekly NSTs @ 36wks GHTN in prior -baseline labs, baby asa Hx of Heart Murmur Tachycardia in *Cardiology Consult - 07/23 Rh Negative *Rhogam at 28 weeks -Rhogam given 07/22/24- MK Rubella Equivocal Hep B Non-Immune *Recommend vaccine GDM w/16wk glucola 191-patient elects to be treated *Begin monthly Growth US's @24wks Polyhydramnios *Weekly NSTs if fluid 12 or greater *Weekly AFIs @ Dx *If pocket >16 refer to [facility] *Deliver between [id number] Admission Exam (Per Admitting) Constitutional WD/WN, vitals as above Respiratory normal respiratory effort, lungs clear to auscultation no respiratory distress Cardiovascular Rate/Rhythm: regular rate and regular rhythm Gastrointestinal (Abdomen) Inspection/Auscultation: abdomen normal to inspection Percussion/Palpation: abdomen soft; abdomen nontender Skin no rashes, warm and dry Psychiatric A+Ox3, euthymic affect Discharge Data Consultations 09/26/24 05:45 Consult Anesthesiology Stat Procedures Performed Operation Date: 09/26/24 07:30 Actual Procedures p Section, delivery of live female child at 0809. - Nicole Ambrose DO s with Bilateral Tubal Ligation - Nicole Ambrose DO Hospital Course (1) Status post : Day 2 status post repeat . Patient doing well. Stable for discharge if preferred (2) state: Supervising Physician Co-Signing Physician Notes Resident Physician Supervision Note: I interviewed and examined the patient. Discussed with Dr. Hermosillo and agree with findings and plan as documented in the note. Any exceptions or clarifications are listed here: POD#1 doing well. R LE on exam appears benign, will obtain doppler to r/o DVT. Routine postop care. DARIA dressing removal at POD 7 - patient is aware to be seen in office for this. Documented By: Nicole Ambrose DO Coding Level of Care Code None Diagnoses Status post Z98.891 state Z39.2
== END 2024-09-28 15:45 | disposition home or self-care (01) | DRG 784 ==
LOC: 4S1 05:37 → 4E2 12:31 → EDSTATUS 10-03 07:30
PROC: M.PPTLD (2024-09-26 07:30)
DX: Z37.0 Single live birth; Z79.82 Long term (current) use of aspirin; O40.3XX0 Polyhydramnios, third trimester, not applicable or unspecified; O24.420 Gestational diabetes mellitus in childbirth, diet controlled; Z67.91 Unspecified blood type, Rh negative; O99.824 Streptococcus B carrier state complicating childbirth; Z3A.38 38 weeks gestation of pregnancy; Z30.2 Encounter for sterilization; O99.214 Obesity complicating childbirth; O26.893 Other specified pregnancy related conditions, third trimester; M79.661 Pain in right lower leg; Z88.6 Allergy status to analgesic agent; O10.92 Unspecified pre-existing hypertension complicating childbirth; Z86.79 Personal history of other diseases of the circulatory system; O34.219 Maternal care for unspecified type scar from previous cesarean delivery